=== PATIENT | female | born 1955 | race African-American/Black ===

== ENCOUNTER 2016-11-28 16:00 | Emergency (ER) | payer MEDICAID ==
[~2016-11-28] VITALS: Ht 165.1 cm; Wt 68.2 kg
[~2016-11-28 16:00] MED LIST: ACIDOPHILU4 OR; ALPRAZOLAM0.5 MG OR; ALPRAZOLAM1 MG OR; AMBIEN10 MG OR; AMBIEN10 MG PO; AMBIEN5 MG OR; AMBIEN5 MG PO; AMLODIPINE10 MG PO; APAP OR; ASPIRIN EC81 MG PO; ATENOLOL; ATENOLOL25 MG OR; ATENOLOL25 MG PO; ATIVAN0.5 MG OR; AUGMENTIN875TAB PO; BLEPH-1010 % OD; CIPROFLOXACN500 MG PO; CITALOPRAM20 MG PO; CLONAZEP ODT0.5 MG OR; CLONAZEPAM0.5 MG OR; CLONIDINE0.1 MG OR; COMBIVENT INH; DEPAKOTE125 MG OR; DEPAKOTE500 MG OR; DILANTIN INFATA50 MG OR; DILANTIN100 MG OR; DIVALPROEX250 M1 PO; DIVALPROEX250 MG PO; DUONEB INH; FAMOTIDINE20 M1 PO; FLEXERIL OR; FLEXERIL10 MG OR; FUROSEMIDE40 MG PO; HYDROCHLOROT12.5 MG OR; HYDROCHLOROT25 MG PO; HYDROCO OR; HYDROCO/APAP1 TA9 PO; HYDROMORPHONE HC2 MG PO; K-DUR/KLOR-CON20 MEQ PO; KEPPRA XR750 MG PO; KEPPRA100 MG/ML OR; KEPPRA1000 MG PO; KEPPRA500 MG OR; KEPPRA750 MG; LASIX 20 MG TAB20 MG PO; LASIX 40 MG TAB40 MG PO; LEVETIRACETAM1000 MG PO; LISINOPRIL10 MG PO; LISINOPRIL40 MG OR; LOPRESSOR50 MG PO; LORTAB 5 OR; LUNESTA1 MG OR; METOPROL TAR25 MG PO; METRONIDAZOL500 MG OR; NAPROSYN500 MG OR; NAPROSYN500 MG PO; NAPROXEN250 MG PO; NORVASC10 M1 PO; NORVASC10 MG OR; PAROXETINE20 MG PO; PAROXETINE40 MG PO; PAXIL20 MG OR; PAXIL40 MG OR; PAXIL40 MG PO; PERCOCET 10/31 COMBO PO; PERCOCET 5/325M1 TAB PO; PERCOCET1 TA2 PO; PHENYTOIN EX100 MG OR; POT CHLORIDE20 ME3 PO; POT CL MICRO20 MEQ PO; PRILOSEC20 MG/CAP OR; PROMETHAZI6.25 MG/5 OR; SMZ-TMP DS1 TAB PO; TRAMADOL HCL50 MG OR; TRAMADOL HCL50 MG PO; ULTRAM50 MG OR; WHEELCHAIR; XANAX0.25 MG OR; XANAX0.5 MG; XANAX0.5 MG PO; XANAX1 MG OR; ZITHROMAX500 MG PO
[2016-11-28] MEDS ORDERED: AMITRIPTYLIN25 MG PO (17:14)
[2016-11-28] MEDS ORDERED: NAPROSYN500 MG PO (17:56)
[2016-11-28 18:10] VITALS: BP 93/67
== END 2016-11-28 18:10 | disposition home or self-care (01) | DRG 563 ==
LOC: ED 16:00
DX: S83.92XA Sprain of unspecified site of left knee, initial encounter (principal); X58.XXXA Exposure to other specified factors, initial encounter; X50.1XXA Overexertion from prolonged static or awkward postures, initial encounter; Y92.003 Bedroom of unspecified non-institutional (private) residence as the place of occurrence of the external cause

== ENCOUNTER 2017-02-03 07:44 | Emergency (ER) | payer MEDICAID ==
[~2017-02-03] VITALS: Ht 165.1 cm; Wt 62.0 kg
[~2017-02-03 07:44] MED LIST changes: +AMITRIPTYLIN25 MG PO
[2017-02-03 08:59] LABS: HEMATOCRIT 33.7 % (37.0-47.0); IMMATURE GRANULOCYTES 0.2 % (0.0-1.0); MEAN CELL VOLUME 96.3 fL CALC (80.0-100.0); MEAN CORPUSCULAR HGB 31.4 pG CALC (26.0-32.0); MEAN CORPUSCULAR HGB CONC 32.6 g/L CALC (32.0-36.0); NEUT# 3.39 thou/uL (2.00-7.15); RED BLOOD COUNT 3.5 mill/uL (4.20-5.60); RED CELL DISTRI WIDTH 13.3 % (11.5-15.5)
[2017-02-03 09:18] LABS: ANION GAP 15 (6-22 (CALC)); BUN 17 mg/dL (7-17); BUN/CREATININE RATIO 25 (12-20 (CALC)); CALCIUM 9.4 mg/dL (8.4-10.2); CARBON DIOXIDE 32 mmol/l (22-30); CHLORIDE 106 mmol/l (95-108); CREATININE 0.7 mg/dL (0.5-1.0); GFR > 60 ML/MIN (>=60 (CALC)); GFR FOR AFR.AMER. > 60 ML/MIN (>=60 (CALC)); GLUCOSE 88 mg/dL (65-105); POTASSIUM 3.6 mmol/l (3.5-5.1); SODIUM 149 mmol/l (137-146)
[2017-02-03 09:48] VITALS: BP 130/83
== END 2017-02-03 09:53 | disposition home or self-care (01) | DRG 158 ==
LOC: ED 07:44
PROVIDERS: Family Medicine
DX: S01.511A Laceration without foreign body of lip, initial encounter (principal); E87.0 Hyperosmolality and hypernatremia; I10 Essential (primary) hypertension; G40.909 Epilepsy, unspecified, not intractable, without status epilepticus; F17.210 Nicotine dependence, cigarettes, uncomplicated; W19.XXXA Unspecified fall, initial encounter

== ENCOUNTER 2017-06-14 17:09 | Emergency (ER) | payer MEDICAID ==
[~2017-06-14] VITALS: Ht 170.2 cm; Wt 60.0 kg
[~2017-06-14 17:09] MED LIST changes: +VALPROIC ACD250 M1 PO
[2017-06-14 17:38] LABS: HEMATOCRIT 36.4 % (37.0-47.0); HEMOGLOBIN 11.9 g/dl (12.0-16.0); IMMATURE GRANULOCYTES 0.3 % (0.0-1.0); MEAN CELL VOLUME 97.1 fL CALC (80.0-100.0); MEAN CORPUSCULAR HGB 31.7 pG CALC (26.0-32.0); MEAN CORPUSCULAR HGB CONC 32.7 g/L CALC (32.0-36.0); NEUT# 2.39 thou/uL (2.00-7.15); RED BLOOD COUNT 3.75 mill/uL (4.20-5.60); RED CELL DISTRI WIDTH 13.7 % (11.5-15.5)
[2017-06-14 17:55] LABS: URINE BILIRUBIN - DIPSTICK NEGATIVE (NEGATIVE); URINE BLOOD DIPSTICK NEGATIVE (NEGATIVE); URINE COLOR YELLOW; URINE GLUCOSE - DIPSTICK NEGATIVE (NEGATIVE); URINE KETONE NEGATIVE (NEGATIVE); URINE LEUK ESTERASE NEGATIVE (Negative); URINE NITRITE - DIPSTICK NEGATIVE (Negative); URINE PROTEIN - DIPSTICK NEGATIVE (NEG-TRACE); URINE UROBILINOGEN - DIPSTICK 0.2 E.U./dL (0.2)
[2017-06-14 17:58] LABS: URINE CLARITY CLEAR
[2017-06-14 18:02] LABS: ALKALINE PHOSPHATASE 103 u/l (38-126); ANION GAP 12 (6-22 (CALC)); BILIRUBIN, TOTAL 0.3 mg/dL (0.0-1.4); BUN 10 mg/dL (7-17); BUN/CREATININE RATIO 15 (12-20 (CALC)); CARBON DIOXIDE 31 mmol/l (22-30); CHLORIDE 98 mmol/l (95-108); CREATININE 0.6 mg/dL (0.5-1.0); GFR > 60 ML/MIN (>=60 (CALC)); GFR FOR AFR.AMER. > 60 ML/MIN (>=60 (CALC)); POTASSIUM 3.7 mmol/l (3.5-5.1); SGOT/AST 39 u/l (14-36); SGPT/ALT 33 u/l (9-52); SODIUM 138 mmol/l (137-146); TOTAL PROTEIN 7.6 g/dL (6.3-8.2)
[2017-06-14 22:11] VITALS: BP 114/74
== END 2017-06-14 22:12 | disposition short-term general hospital (02) | DRG 101 ==
LOC: ED 17:09 → ED-I 20:35 → ED 22:12
PROVIDERS: Emergency Medicine
DX: G40.909 Epilepsy, unspecified, not intractable, without status epilepticus (principal); M54.2 Cervicalgia; W22.8XXA Striking against or struck by other objects, initial encounter; W18.39XA Other fall on same level, initial encounter; Y92.009 Unspecified place in unspecified non-institutional (private) residence as the place of occurrence of the external cause
CPT/HCPCS: J2060

== ENCOUNTER 2018-01-30 10:46 | Emergency (ER) | payer MEDICAID ==
[~2018-01-30] VITALS: Ht 170.2 cm; Wt 63.0 kg
[2018-01-30 11:36] LABS: HEMATOCRIT 37.3 % (37.0-47.0); HEMOGLOBIN 12.5 g/dl (12.0-16.0); MEAN CELL VOLUME 97.6 fL CALC (80.0-100.0); MEAN CORPUSCULAR HGB 32.7 pG CALC (26.0-32.0); MEAN CORPUSCULAR HGB CONC 33.5 g/L CALC (32.0-36.0); NEUT# 2.57 thou/uL (2.00-7.15); RED BLOOD COUNT 3.82 mill/uL (4.20-5.60); RED CELL DISTRI WIDTH 14.6 % (11.5-15.5)
[2018-01-30 11:42] LABS: ANION GAP 10 (6-22 (CALC)); BUN 12 mg/dL (8-23); BUN/CREATININE RATIO 19 (12-20 (CALC)); CARBON DIOXIDE 34 mmol/l (22-30); CHLORIDE 104 mmol/l (95-108); CREATININE 0.6 mg/dL (0.5-1.0); GFR > 60 ML/MIN (>=60 (CALC)); GFR FOR AFR.AMER. > 60 ML/MIN (>=60 (CALC)); POTASSIUM 3.7 mmol/l (3.5-5.1); SODIUM 145 mmol/l (137-146)
[2018-01-30 12:01] VITALS: BP 101/70
== END 2018-01-30 12:13 | disposition home or self-care (01) ==
LOC: ED 10:46
PROVIDERS: Family Medicine
DX: G40.909 Epilepsy, unspecified, not intractable, without status epilepticus (principal); I11.0 Hypertensive heart disease with heart failure; I50.9 Heart failure, unspecified; F41.9 Anxiety disorder, unspecified; J45.909 Unspecified asthma, uncomplicated; F17.210 Nicotine dependence, cigarettes, uncomplicated

== ENCOUNTER 2018-02-07 13:16 | Emergency (ER) | payer MEDICAID ==
[~2018-02-07] VITALS: Ht 170.2 cm; Wt 67.7 kg
[2018-02-07] MEDS ORDERED: FUROSEMIDE40 MG PO (13:35)
[2018-02-07 14:28] LABS: HEMATOCRIT 34.7 % (37.0-47.0); HEMOGLOBIN 11.5 g/dl (12.0-16.0); IMMATURE GRANULOCYTES 0.3 % (0.0-5.0); MEAN CELL VOLUME 96.7 fL CALC (80.0-100.0); MEAN CORPUSCULAR HGB CONC 33.1 g/L CALC (32.0-36.0); NEUT# 6.38 thou/uL (2.00-7.15); RED BLOOD COUNT 3.59 mill/uL (4.20-5.60); RED CELL DISTRI WIDTH 14.1 % (11.5-15.5)
[2018-02-07 14:48] LABS: ANION GAP 11 (6-22 (CALC)); BUN 11 mg/dL (8-23); BUN/CREATININE RATIO 22 (12-20 (CALC)); CARBON DIOXIDE 32 mmol/l (22-30); CHLORIDE 102 mmol/l (95-108); CREATININE 0.5 mg/dL (0.5-1.0); GFR > 60 ML/MIN (>=60 (CALC)); GFR FOR AFR.AMER. > 60 ML/MIN (>=60 (CALC)); POTASSIUM 3.2 mmol/l (3.5-5.1); SODIUM 141 mmol/l (137-146)
[2018-02-07] MEDS ORDERED: K-TAB20 MEQ PO (15:16)
[2018-02-07 16:16] VITALS: BP 149/84
== END 2018-02-07 16:35 | disposition home or self-care (01) ==
LOC: ED 13:16
PROVIDERS: Family Medicine
DX: G40.409 Other generalized epilepsy and epileptic syndromes, not intractable, without status epilepticus (principal); I11.0 Hypertensive heart disease with heart failure; I50.9 Heart failure, unspecified; J45.909 Unspecified asthma, uncomplicated; F17.210 Nicotine dependence, cigarettes, uncomplicated; F41.9 Anxiety disorder, unspecified
CPT/HCPCS: J2060

== ENCOUNTER 2018-02-07 17:56 | Observation (INO) | payer MEDICAID ==
[~2018-02-07] VITALS: Ht 170.2 cm; Wt 61.9 kg
[~2018-02-07 17:56] MED LIST changes: +K-TAB20 MEQ PO
--- NOTE | 2018-02-07 18:00 | NUR ---
PT ARRIVED WITH DAUGHTER VIA WC, HAD APPROX 20 SECOND WITNESSED EPISODE OF SUDDEN ONSET WEAKNESS WITH LEANING TO RT SIDE, PT RESPONSIVE AND ALERT BUT UNABLE TO VERBALIZE. PT BECAME VERBAL AND IS NOT POSTYCTAL.
[2018-02-07 18:43] LABS: INFLUENZA A NONE DETECTED (NONE DETECT); INFLUENZA B NONE DETECTED (NONE DETECT)
[2018-02-07 18:58] LABS: HEMATOCRIT 33.7 % (37.0-47.0); HEMOGLOBIN 11.2 g/dl (12.0-16.0); IMMATURE GRANULOCYTES 0.1 % (0.0-5.0); MEAN CELL VOLUME 96.6 fL CALC (80.0-100.0); MEAN CORPUSCULAR HGB 32.1 pG CALC (26.0-32.0); MEAN CORPUSCULAR HGB CONC 33.2 g/L CALC (32.0-36.0); NEUT# 5.05 thou/uL (2.00-7.15); RED BLOOD COUNT 3.49 mill/uL (4.20-5.60); RED CELL DISTRI WIDTH 13.9 % (11.5-15.5)
--- NOTE | 2018-02-07 19:15 | NUR ---
PT RETURNED TO ER AFTER BEING SEEN EARLIER TODAY, HAD SEIZURE AT HOME. EDP PERFORMED LUMBAR PUNCTURE, PT TOLERATED WELL. DAUGHTER IS AT BEDSIDE.
[2018-02-07 19:41] LABS: ALBUMIN 3.6 g/dL (3.2-5.0); ALKALINE PHOSPHATASE 73 u/l (38-126); ANION GAP 9 (6-22 (CALC)); BILIRUBIN, TOTAL 0.4 mg/dL (0.0-1.4); BUN 8 mg/dL (8-23); BUN/CREATININE RATIO 17 (12-20 (CALC)); CARBON DIOXIDE 31 mmol/l (22-30); CHLORIDE 105 mmol/l (95-108); CREATININE 0.5 mg/dL (0.5-1.0); GFR > 60 ML/MIN (>=60 (CALC)); GFR FOR AFR.AMER. > 60 ML/MIN (>=60 (CALC)); POTASSIUM 3.5 mmol/l (3.5-5.1); SGOT/AST 24 u/l (9-36); SODIUM 142 mmol/l (137-146)
[2018-02-07 19:43] LABS: URINE BILIRUBIN - DIPSTICK NEGATIVE (NEGATIVE); URINE BLOOD DIPSTICK NEGATIVE (NEGATIVE); URINE COLOR YELLOW; URINE GLUCOSE - DIPSTICK NEGATIVE (NEGATIVE); URINE KETONE TRACE mg/dL (NEGATIVE); URINE LEUK ESTERASE NEGATIVE (NEGATIVE); URINE NITRITE - DIPSTICK NEGATIVE (Negative); URINE PROTEIN - DIPSTICK NEGATIVE (NEG-TRACE)
[2018-02-07 19:52] LABS: URINE CLARITY CLEAR
--- NOTE | 2018-02-07 20:24 | NUR ---
PT ABLE TO USE BEDPAN WHILE IN STRETCHER. PT HAS HAD SPASMS OF THE FEET, INVOLUNTARY MOVEMENTS, WHICH SHE CALLS SEIZURES. NO TRUE SEIZURE ACTIVITY NOTED WHILE HERE.
--- NOTE | 2018-02-07 21:10 | NUR ---
SBAR PRINTED TO FLOOR
[2018-02-07 22:00] VITALS: BP 153/85
--- NOTE | 2018-02-07 22:00 | NUR ---
PT ARRIVED TO ROOM VIA STRETCHER WITH ER STAFF; ALERT AND ORIENTED. WAS ABLE TO STAND AND TAKE A FEW STEPS TO BED. PT INITIALLY C/O BEING COLD; TEMPERATURE DOWN TO 98.0. SHE ALSO C/O 8/10 LOWER LEG PAIN AND HAS FACIAL GRIMACING WHEN THEY ARE TOUCHED. RESPIRATIONS EVEN AND UNLABORED ON ROOM AIR. ASSESSMENT COMLETED UPON ADMISSION; RIGHT CHEST PORT IS ACCESSED; DRESSING CDI AND DATED 02/07/18; PT STATES THAT HER PORT IS R/T POOR VENOUS ACCESS AND SHE HAS HER BLOOD WORK DRAWN THROUGH IT. BEFORE ASSESSMENT IS COMPLETE PT STATES, "SEE, LOOK IT'S HAPPENING AGAIN" INDICATING HER FEET. BILATERAL FEET BEGIN TO FALL TO THE RIGHT. PERRLA; NO FACIAL DROOP; RIGHT CUSHION BUILDER SLIGHTLY WEAKER THAN LEFT. PT IMMEDIATELY REQUESTING HER HS MEDICATIONS INCLUDING XANAX AND AMBIEN. DAUGHTER NOW AT BEDSIDE. ORIENTED TO ROOM AND CALL LIGHT SYSTEM. PLAN OF CARE DISCUSSED. PT ENCOURAGED TO VERBALIZE CONCERNS. STATES UNDERSTANDING. SAFETY MEASURES IN PLACE. CALL LIGHT WITHIN REACH.
--- NOTE | 2018-02-07 22:00 | NUR ---
PT TAKEN TO ROOM 291 WITHOUT INCIDENT, REPORT WAS TO HÉCTOR.
--- NOTE | 2018-02-08 00:16 | NUR ---
HS MEDICATIONS ADMINISTERED AND IV FLUIDS INITATED; INFUSING WITHOUT DIFFICULTY. PT PLACED ON SEIZURE PRECAUTIONS. DAUGHTER REMAINS AT BEDSIDE. PT HAS MANY REQUESTS, USING CALL LIGHT FREQUENTLY. ALL NEEDS MET. BANDAID NOTED TO LUMBER SPINE R/T LUMBAR PUNCTURE PERFORMED TODAY IN ED. VS STABLE; AFEBRILE. PT ON FALL PRECAUTIONS; STAND BY ASSIST TO BSC. SAFETY MEASURES IN PLACE. CALL LIGHT WITHIN REACH.
[2018-02-08 01:00] VITALS: BP 112/67
[2018-02-08 04:00] VITALS: BP 136/80
--- NOTE | 2018-02-08 04:02 | NUR ---
PT ASLEEP AT THIS TIME WITH NO SIGNS OF DISTRESS. RESPIRATIONS EVEN AND UNLABORED ON ROOM AIR. NO ACUTE CHANGES IN CONDITION SINCE ADMISSION. SAFETY MEASURES IN PLACE. CALL LIGHT WITHIN REACH.
--- NOTE | 2018-02-08 05:14 | NUR ---
PT USES CALL LIGHT AND REPORTS, "I JUST HAD ANOTHER SEIZURE, BUT IT IS STARTING TO GO AWAY NOW." NO SIGNS OF SEIZURE ACTIVITY AND PT'S RIGHT HAND IS SLOWLY MOVING BACK AND FORTH. NEURO CHECK WNL WITH STRONG EQUAL CUSTOMER TRAINING SPECIALIST AND PEDAL PUSHES. REPORTS NO OTHER SYMPTOMS. NO EVIDENCE OF ANY POSTICAL SYMPTOMS. PT HAS REMAINED SINUS RHYTHM ON TELEMETRY WITH NO CHANGES DURING THIS TIME FRAME. WILL CONTINUE TO MONITOR.
--- NOTE | 2018-02-08 05:45 | NUR ---
PT USED CALL LIGHT TO REPORT ANOTHER EPISODE. RIGHT ARM WAS CONTRACTED AND RIGHT HAND LIMP; PT STATES THAT THIS IS INVOLUNTARY. IT QUICKLY RESOLVED AND PT AGAIN WITH STRONG EQUAL SUGAR CHIPPER MACHINE OPERATOR. SHE STATES THAT AT THIS TIME HER RIGHT LEG ALSO WAS CRAMPING AND TURNING TO THE RIGHT. SHE REQUESTED THAT 3RD RIGHT SIDE RAIL BE PUT UP BECAUSE SHE IS NERVOUS THAT WILL FALL OFF OF THE RIGHT SIDE OF THE BED.
--- NOTE | 2018-02-08 07:10 | NUR ---
PT C/O BLOOD ON HER R EAR. FROM FALL AT HOME YESTERDAY
--- NOTE | 2018-02-08 08:00 | NUR ---
ASSESSMENT IS COMPLETED: PT IS AWAKE AND ALERT, BREATH SOUNDS ARE CLEAR, BILATERALLY, NO C/O SOB, HR IS REG, PULSES ARE STRONG X4, ABD IS SOFT WITH ACTIVE BS. IV SITE IS FREE FROM REDNESS OR EDEMA. TELE MONITOR IN PLACE.
--- NOTE | 2018-02-08 09:15 | NUR ---
PT CALLED FOR THE NURSE. HAD "AN EPISODE". RE: R ARM WAS TWITCHING AND STRAIGHT UP IN THE AIR, ALSO BOTH LEGS FELT LIKE THEY WERE FLOATING, FELT LIKE HER HEAD WAS MOVING FROM SIDE TO SIDE ON THE INSIDE BUT NOT ON THE OUTSIDE". INSTRUCTED PT TO TRY AND RELAX. INFORMED MARTINEZ COOPER
--- NOTE | 2018-02-08 11:25 | NUR ---
NOTIFIED BY ER PT HR IN 40'S, ENTERED ROOM PT RESTING IN BED, NO SIGNS OF DISTRESS NOTED, RESP EVEN AND UNLABORED. SEIZURE PRECAUTIONS NOTED. ALERT AND ORIENTED X3. DISCUSSED POC, PT VOICES NO NEEDS OR COMPLAINTS AT THIS TIME. ASSESSMENT COMPLETED. NOTED SWELLING AND BRUISING TO R EAR.PT STATES SHE HAD RINGING IN HER EAR, GLOBAL MARKETING OPERATIONS MANAGER AND MD NOTIFIED. NEURO CHECK COMPLETED. PT HAS BRUISING FROM FALL AT HOME. DAUGHTER AT BEDSIDE. VOICES NO NEEDS OR COMPLAINTS AT THIS TIME. CALL LIGHT IN REACH,CONTINUE TO MONITOR.
[2018-02-08 11:45] VITALS: BP 110/81
--- NOTE | 2018-02-08 14:45 | NUR ---
PT MEDICATED WITH 1MG OF IV ATIVAN, PT REQUESTING SOMETHING FOR ANXIETY. WILL HOLD XANAX FOR 1HR AND MEDICATE AT 1600. PT IN AGREEMENT.
[2018-02-08 16:00] VITALS: BP 118/68
[2018-02-08 20:00] VITALS: BP 149/93
--- NOTE | 2018-02-08 20:22 | NUR ---
ASSESSMENT IS COMPLETED: IV SITE IS FREE FROM REDNESS OR EDEMA. HR IS REG, PULSES ARE STRONG X4,A BD IS SOFT WITH ACTIVE BS BREATH SOUNDS ARE CLEAR AND SOME WHEEZING NOTED. TELE MONTIOR IN PLACE. CONTINUE TO OSBERVE AND MONITOR.
[2018-02-09 00:26] VITALS: BP 142/87
--- NOTE | 2018-02-09 00:50 | NUR ---
PT IS RESTING WITH EYES CLOSED NODISTRESS NOTED. IV SITE IS FREE FROM REDNESS OR EDEMA. CONTINUE TO OBSERVE AND MONITOR.
--- NOTE | 2018-02-09 04:50 | NUR ---
PT IS RELAXING IN BED WITH NO DISTRESS NOTED. IV SITE IS FREE FROM REDNESS OR EDEMA.
[2018-02-09 05:33] VITALS: BP 130/76
[2018-02-09 09:19] VITALS: BP 137/78
--- NOTE | 2018-02-09 09:22 | NUR ---
PT RESTING IN BED DAUGHTER AT BEDSIDE, PT ALERT AND ORIENTED X3, NO SIGNS OF DISTRESS NOTED, RESP EVEN AND UNLABORED. IVF INFUSING TO PORT RU CHEST. DISCUSSED POC, VSS, PNEUMONIA VACC ADMINISTERED TO R ARM, TOLERATED WELL. ASSESSMENT COMPLETED. CALL LIGHT IN REACH,CONTINUE TO MONITOR.
--- NOTE | 2018-02-09 10:55 | NUR ---
ALLISON AND MD AT BEDSIDE, DISCUSSING POC AND PLANS FOR DISCHARGE, PT IN AGREEMENT.
[2018-02-09] MEDS ORDERED: SEROQUEL25 MG PO (11:29)
[2018-02-09] MEDS ORDERED: MEDDOSEPAK PO (11:29)
[2018-02-09] MEDS ORDERED: LEVETIRACETAM1000 MG PO (11:29)
[2018-02-09] MEDS ORDERED: AMITRIPTYLIN25 MG PO (11:29)
[2018-02-09] MEDS ORDERED: ZITHROMAX500 MG PO (11:29)
[2018-02-09] MEDS ORDERED: VALPROIC ACD250 M1 PO (11:29)
--- NOTE | 2018-02-09 11:59 | NUR ---
PT SITTING AT SIDE OF BED, LUNCH PROVIDED, INITATED AZYTHROMYCIN, WILL COMPLETE DISCHARGE ORDERS.
[2018-02-09 12:00] VITALS: BP 151/75
--- NOTE | 2018-02-09 13:27 | NUR ---
Discharge instructions given. Patient verbalizes understanding of same. Discharged in stable condition via Wheelchair to Home with family. All belongings sent with pt.
== END 2018-02-09 13:30 | disposition home or self-care (01) ==
LOC: ED 17:56 → ED-I 21:00 → ED 21:24 → MS2 21:25
PROVIDERS: Family Medicine; ADMIT Internal Medicine; ATTEND Internal Medicine
DX: G40.909 Epilepsy, unspecified, not intractable, without status epilepticus (principal); J44.1 Chronic obstructive pulmonary disease with (acute) exacerbation; I11.0 Hypertensive heart disease with heart failure; I50.9 Heart failure, unspecified; F41.9 Anxiety disorder, unspecified; F10.20 Alcohol dependence, uncomplicated; S30.0XXA Contusion of lower back and pelvis, initial encounter; S00.431A Contusion of right ear, initial encounter; S80.12XA Contusion of left lower leg, initial encounter; F17.210 Nicotine dependence, cigarettes, uncomplicated; W19.XXXA Unspecified fall, initial encounter; Z23 Encounter for immunization; J45.909 Unspecified asthma, uncomplicated
CPT/HCPCS: G0378; J1650; J2060

== ENCOUNTER 2018-08-14 10:16 | Inpatient (IN) | payer MEDICAID ==
[2018-08-14] VITALS (10 sets, daily range): BP systolic 107–150; BP diastolic 71–89
[~2018-08-14] VITALS: Ht 170.2 cm; Wt 64.6 kg
[~2018-08-14 10:16] MED LIST changes: +MEDDOSEPAK PO; +SEROQUEL25 MG PO
--- NOTE | 2018-08-14 10:32 | NUR ---
WHEELCHAIR TO ER ROOM 13, TO BED
--- NOTE | 2018-08-14 10:40 | NUR ---
PT STATES THAT SHE HAD A SEIZURE EARLIER TODAY AND HURT HER NECK AND BODY FROM FALLING. PT HAS A HX OF SEIZURES AND NO CHANGES IN MEDICATIONS. PT IS CURRENTLY AOX4. HARD C-COLLAR APPLIED PER MD. PT DENIES ANY C/P, SOB, N/V OR WEAKNESS.
--- NOTE | 2018-08-14 10:50 | NUR ---
PT HAVING FOCAL SEIZURE ACTIVITY DURING EXAM WITH MD. SEIZURE PADS IN PLACE.
--- NOTE | 2018-08-14 10:50 | NUR ---
PT RESTING ON STRETCHER, NO SIGNS OF SEIZURE ACTIVITY AT THIS TIME.
[2018-08-14 11:47] LABS: HEMATOCRIT 34.5 % (37.0-47.0); HEMOGLOBIN 11.1 g/dl (12.0-16.0); IMMATURE GRANULOCYTES 0.3 % (0.0-5.0); MEAN CELL VOLUME 98.6 fL CALC (80.0-100.0); MEAN CORPUSCULAR HGB 31.7 pG CALC (26.0-32.0); MEAN CORPUSCULAR HGB CONC 32.2 g/L CALC (32.0-36.0); NEUT# 2.23 thou/uL (2.00-7.15); RED BLOOD COUNT 3.5 mill/uL (4.20-5.60)
--- NOTE | 2018-08-14 11:50 | NUR ---
PT IN CT
--- NOTE | 2018-08-14 11:59 | NUR ---
PT RESTING ON STRETCHER, NO SEIZURES STATES DURING CT.
[2018-08-14 12:07] LABS: ANION GAP 11 (6-22 (CALC)); BUN 18 mg/dL (8-23); BUN/CREATININE RATIO 40 (12-20 (CALC)); CARBON DIOXIDE 30 mmol/l (22-30); CHLORIDE 103 mmol/l (95-108); CREATININE 0.5 mg/dL (0.5-1.0); GFR > 60 ML/MIN (>=60 (CALC)); GFR FOR AFR.AMER. > 60 ML/MIN (>=60 (CALC)); POTASSIUM 3.2 mmol/l (3.5-5.1); SODIUM 141 mmol/l (137-146)
[2018-08-14] MEDS ORDERED: AMLODIPINE5 MG PO (12:31)
[2018-08-14] MEDS ORDERED: DIVALPROEX250 MG PO (12:32)
[2018-08-14] MEDS ORDERED: QUETIAPINE FUMA25 MG PO (12:34)
[2018-08-14] MEDS ORDERED: CELEBREX100 M1 PO (12:34)
--- NOTE | 2018-08-14 12:59 | NUR ---
PT AMBULATED TO BEDSIDE COMMODE AND BACK TO BED WITH DAUGHTERS ASSISTANCE.
--- NOTE | 2018-08-14 13:21 | NUR ---
MD AT BEDSIDE TO EXPLAIN FINDINGS AND DISCUSS ADMISSION.
--- NOTE | 2018-08-14 14:19 | NUR ---
REPORT CALLED TO ICU ANDREWS HERNANDEZ AND SHEKHAR HERNANDEZ ACCPETED PT.
--- NOTE | 2018-08-14 14:34 | NUR ---
PATIENT ARRIVED FROM ER VIA ER STRETCHER WITH ACCOMPANYING NURSE. PATIENT ON ROOM AIR. ABLE TO WALK TO HER BED WITH ASSISTANCE. SHE WAS FOLLOWING COMMANDS AND ANSWERING QUESTIONS. FEW MINUTES LATER NURSING STAFF AND I OBSERVED SHE WAS HAVING A FOCAL SEIZURE, EYES STARING TO THE SIDE. SHE THAN BECAME CONFUSED AND WAS TRYING TO GET OUT OF BED, PULLING HER BLODD PRESSURE CUFF OF AND TELEMETRY OFF. SHE WAS KICKING AND STRIKING OUT. SHE WAS UNCOOPERATIVE AND WOULD NOT FOLLOW COMMANDS. COUPLE MINUTES LATER SHE WAS HAVING ANOTHER FOCAL SEIZURE AND WOULD THAN KICK AND STRIKE OUT AND TRY TO GET OUT OF BED. DAUGHTER TENZIN WAS CALLED TO NOTIFY AND ASKED IF SHE COULD COME IN TO BE WITH PATIENT, SHE REPORTED SHE COULD NOT COME IN AT THE TIME AND THAT SHE WAS ALRAEDY TIRED FROM WATCHING THE PATIENT AT THE ER BECAUSE SHE WAS DOING THE SAME THING WITH HER. DAUGHTER WAS NOTIFIED PATIENT WILL BE PLACED IN RESTRAINTS FOR HER SAFETY, DAUGHTER AGREED. DR THAKKAR IN ROOM TO ASSESS PATIENT. DR THAKKAR GAVE ORDERS TO PLACE ATIVAN DRIP WELL RESTRAINTS AND TRANSFER PATIENT TO [facility]. PATIENT PLACED IN RESTRAINTS SAFELY. SEZURES PRECAUTIONS IN PLACE. PATIENT AFEBRILE. PATIENT NOT ABLE TO ANSWER QUESTIONS SHE IS CONFUSED. FALL RISK PRECAUTIONS IN PLACE.
--- NOTE | 2018-08-14 14:35 | NUR ---
Admission Note Report Given to: SHEKHAR HERNANDEZ Transported by: Wheelchair X Stretcher Transported with: X Nurse Transporter X Patent IV O2 X Program Control Analyst TRANSPORTED TO ICU 3 WITHOUT INCIDENT
--- NOTE | 2018-08-14 15:50 | NUR ---
CALLED AND SPOKE TO RANDAL-FLUX TUBE ATTENDANT AT [facility] TO INITIATE TRANSFER, SBAR GIVEN AND RANDAL NOTIFIED SHE WILL CALL BACK SOON BED AVAILABLE.
--- NOTE | 2018-08-14 16:00 | NUR ---
resting in bed with eyes closed; resp even and unlabored; no resp distress/ apnea noted; ativan gtt cont at 1mg/hr; pt easily arousable; will continue to monitor
--- NOTE | 2018-08-14 16:23 | NUR ---
DR NUNEZ CRITICAL CARE DOCTOR CALLED AND SBAR GIVEN OF PATIENT, STILL AWAITING BED TO BE AVAILABLE.
--- NOTE | 2018-08-14 16:40 | NUR ---
RECEIVED A CALL FROM DR THAKKAR REGARDING HE SPOKE TO THE INTENSICE CARE DOCTOR AND SHE WANTS THE ATIVAN DRIP DISCONTINUED FOR CONCERNS OF RESPIRATORY SUPRESSION WHEN IN TRANSIT. DR THAKKAR GAVE ORDER TO DISCONTINE THE ATIVAN DRIP BEFORE PATIENT LEAVES.
--- NOTE | 2018-08-14 17:30 | NUR ---
pt placed on bed cunningham; lg urinary incont noted; assist to chair with staff at bedside for pt safety; complete linen change; dinner offered several times with pt refusal; justin to bed with restraints intact for pt safety; po fluids/ grape juice provoided; will continue to monitor
--- NOTE | 2018-08-14 17:49 | NUR ---
pt awake and alert; able to follow all commands; pt able to answer questions approp; pt able to states cuurent month, year and whereabout; plan of care including transfer to [place] explained; pt consent; transfer also explained to Mona Pinzon and co sign obtained; will continue to monitor
--- NOTE | 2018-08-14 17:53 | NUR ---
RANDAL FROM [facility] CALLED WITH BED ASSIGNMENT ICU BED 248, SEPTEMBER SET UP TRASNPORT NUMBER TO CALL REPORT [phone]
--- NOTE | 2018-08-14 18:12 | NUR ---
[facility] transport Abdirashid called per auto service writer; information provided; truck currently returning from [facility]; ETA 2.5 hrs to 2.45 hrs; will continue to monitor
--- NOTE | 2018-08-14 18:35 | NUR ---
SON MICK, ULISES AND, DAUGHTER TENZIN AT BEDSIDE RIGHT NOW WITH PATIENT. SHE IS ABLE TO TOLERATE HER DINNER MEAL. ON ROOM AIR. NO ACUTE DISTRESS SHOWN. NO SEIZURES. CALL LIGHT WITHIN REACH.
--- NOTE | 2018-08-14 19:00 | NUR ---
REPORT FROM Joyce BERUMEN RN. ASSUMED PT. CARE.
--- NOTE | 2018-08-14 19:30 | NUR ---
[facility] PRESENT TO TRANSPORT PATIENT TO [facility].
--- NOTE | 2018-08-14 19:45 | NUR ---
REPORT CALLED TO MARY MORENO. AT [facility].
--- NOTE | 2018-08-14 20:29 | NUR ---
REPORT TO MARY MORENO. AT [facility].
== END 2018-08-14 19:40 | DRG 101 ==
LOC: ED 10:16 → ED-I 13:13 → ED 13:24 → ICU 13:25
PROVIDERS: Family Medicine; ADMIT Internal Medicine Nephrology; ATTEND Internal Medicine Nephrology
DX: G40.919 Epilepsy, unspecified, intractable, without status epilepticus (principal); I11.0 Hypertensive heart disease with heart failure; I50.9 Heart failure, unspecified; J45.909 Unspecified asthma, uncomplicated; F17.200 Nicotine dependence, unspecified, uncomplicated; F41.1 Generalized anxiety disorder; M19.90 Unspecified osteoarthritis, unspecified site
CPT/HCPCS: J1953; J2060

== ENCOUNTER 2019-04-01 14:20 | Emergency (ER) | payer OTHER ==
[~2019-04-01] VITALS: Ht 170.2 cm; Wt 80.0 kg
[~2019-04-01 14:20] MED LIST changes: -AMBIEN5 MG PO; +CELEBREX100 M1 PO; -POT CL MICRO20 MEQ PO
[2019-04-01 15:14] LABS: HEMATOCRIT 39.5 % (37.0-47.0); HEMOGLOBIN 12.8 g/dl (12.0-16.0); IMMATURE GRANULOCYTES 0.3 % (0.0-5.0); MEAN CELL VOLUME 97.8 fL CALC (80.0-100.0); MEAN CORPUSCULAR HGB 31.7 pG CALC (26.0-32.0); MEAN CORPUSCULAR HGB CONC 32.4 g/L CALC (32.0-36.0); NEUT# 5.06 thou/uL (2.00-7.15); RED BLOOD COUNT 4.04 mill/uL (4.20-5.60); RED CELL DISTRI WIDTH 14.3 % (11.5-15.5)
[2019-04-01 15:31] LABS: MAGNESIUM 1.9 mg/dL (1.6-2.3)
[2019-04-01 15:35] LABS: ALKALINE PHOSPHATASE 75 u/l (38-126); BILIRUBIN, TOTAL 0.5 mg/dL (0.0-1.4); BUN 12 mg/dL (8-23); BUN/CREATININE RATIO 17 (12-20 (CALC)); CARBON DIOXIDE 31 mmol/l (22-30); CHLORIDE 107 mmol/l (95-108); CREATININE 0.7 mg/dL (0.5-1.0); GFR > 60 ML/MIN (>=60 (CALC)); GFR FOR AFR.AMER. > 60 ML/MIN (>=60 (CALC)); SGOT/AST 25 u/l (9-36); SODIUM 143 mmol/l (137-146)
[2019-04-01 15:37] LABS: ALBUMIN 4.6 g/dL (3.2-5.0); ANION GAP 10 (6-22 (CALC)); POTASSIUM 4.9 mmol/l (3.5-5.1); TOTAL PROTEIN 8.6 g/dL (6.3-8.2)
[2019-04-01 17:33] VITALS: BP 129/67
[2019-04-02] MEDS ORDERED: AMBIEN5 MG PO (11:38)
[2019-04-02] MEDS ORDERED: XANAX0.5 MG PO (11:39)
[2019-04-02] MEDS ORDERED: LASIX 40 MG TAB40 MG PO (11:42)
[2019-04-02] MEDS ORDERED: AMLODIPINE BESY10 MG PO (11:43)
[2019-04-02] MEDS ORDERED: KLOR-CON M2020 MEQ PO (11:44)
[2019-04-02] MEDS ORDERED: DEPAKOTE250 MG PO (11:45)
[2019-04-02] MEDS ORDERED: QUETIAPINE FUMA25 MG PO (11:46)
[2019-04-02] MEDS ORDERED: TENORMIN25 M1 PO (11:47)
[2019-04-02] MEDS ORDERED: AMITRIPTYLIN25 MG PO (11:47)
[2019-04-02] MEDS ORDERED: ROWEEPRA1000 MG PO (11:48)
[2019-04-02] MEDS ORDERED: ATIVAN1 M1 PO (13:46)
== END 2019-04-01 17:34 | disposition home or self-care (01) ==
LOC: ED 14:20
DX: G40.909 Epilepsy, unspecified, not intractable, without status epilepticus (principal)

== ENCOUNTER 2019-04-02 03:12 | Observation (INO) | payer OTHER ==
[~2019-04-02] VITALS: Ht 167.6 cm; Wt 62.1 kg
--- NOTE | 2019-04-02 03:14 | NUR ---
BY WC TO ROOM
--- NOTE | 2019-04-02 04:00 | NUR ---
PORT ACCESSED AND LABS DRAWN. PT STATES SHE IS "TRYING TO HAVE A SEIZURE." THEN FOLLOWED BY A CONTRACTED SHAKING OF RIGHT HAND/ARM..LASTING ABOUT 5-10 SECONDS.
[2019-04-02 04:06] VITALS: BP 122/78
[2019-04-02 04:10] LABS: HEMATOCRIT 36.4 % (37.0-47.0); IMMATURE GRANULOCYTES 0.1 % (0.0-5.0); MEAN CELL VOLUME 97.8 fL CALC (80.0-100.0); MEAN CORPUSCULAR HGB 32.3 pG CALC (26.0-32.0); NEUT# 4.79 thou/uL (2.00-7.15); RED BLOOD COUNT 3.72 mill/uL (4.20-5.60); RED CELL DISTRI WIDTH 14.3 % (11.5-15.5)
[2019-04-02 04:22] LABS: ALBUMIN 4.1 g/dL (3.2-5.0); ALKALINE PHOSPHATASE 66 u/l (38-126); ANION GAP 11 (6-22 (CALC)); BILIRUBIN, TOTAL 0.7 mg/dL (0.0-1.4); BUN 12 mg/dL (8-23); BUN/CREATININE RATIO 22 (12-20 (CALC)); CARBON DIOXIDE 31 mmol/l (22-30); CHLORIDE 103 mmol/l (95-108); CREATININE 0.5 mg/dL (0.5-1.0); GFR > 60 ML/MIN (>=60 (CALC)); GFR FOR AFR.AMER. > 60 ML/MIN (>=60 (CALC)); SGOT/AST 22 u/l (9-36); SODIUM 141 mmol/l (137-146); TOTAL PROTEIN 7.8 g/dL (6.3-8.2)
[2019-04-02 04:24] LABS: POTASSIUM 3.7 mmol/l (3.5-5.1)
--- NOTE | 2019-04-02 04:33 | NUR ---
AT BEDSIDE TO DISCUSS ADMISSION.
--- NOTE | 2019-04-02 04:58 | NUR ---
REPORT TO DEON/MED-SURG
[2019-04-02 05:05] VITALS: BP 110/71
--- NOTE | 2019-04-02 05:07 | NUR ---
TO FLOOR VIA STRETCHER. POCKET MONITOR. PT REMAINS ALERT/ORIEINTED. FARIDA. LETTY. NO FURTHUR SEIZURE LIKE ACTIVITY. PT TRANSFERED SELF FROM STRETCHER TO BED.
--- NOTE | 2019-04-02 06:36 | NUR ---
PATIENT ADMITTED FROM ER VIA STRETCHER WITH ER STAFF IN ATTENDANCE. PATIENT TRANSFERRED FROM STRETCHER TO THE BED. PATIENT ADMITTED FOR SEIZURES. PATIENT IS AWAKE ALERT AND ORIENTEDX3. STATES THAT SHE WAS IN THE ER YESTERDAY AND THEN RETURNED TONIGHT FOR SEIZURE LIKE ACTIVITY AND WEAKNESS, PATIENT STATES THAT THE DOCTOR MADE RECENT CHANGES TO MEDS AFTER TAKING THEM FOR YEARS. WAS SWITCHED FROM XANAX TO ATIVAN PER PATIENT, LAST TOOK ONLY 1 ATIVAN YESTERDAY AFTERNOON AROUND 3PM. LIVES WITH DAUGHTER AND WAS BROUGHT TO THE ER TONIGHT BY HER DAUGHTER. PATIENT PORT TO RIGHT UPPER CEST-ACCESSED WITH GOOD BLOOD RETURN. IVF NS HUNG AND INFUSING AT 125CC/HR. SITE IS HEALTHY. PATIENT STATES THAT SHE HAD NORMAL BM YSTERDAY. VOIDING WITHOUT ANY DIFFICULTY. STATES THAT RECENTLY HER LEGS HAVE BECOME VERY WEAK WITH FREQUENT FALLS AT HOME. SEIZURE PRECAUTIONS IN PLAE WITH SIDERAILS PADDED. BED ALARM IN PLACE FOR PATIENT SAFETY. PATIENT MEDICATED PER DR. BABCOCK ORDER FOR RESTORIL 15MG. ORIENTED TO ROOM AND SURROUNDINGS. INSTRUCTED ON USE OF NURSE CALL LIGHT SYSTEM, TV REMOTE AND PHONE. SAFETY PRECAUTIONS REVIEWED WITH PATIENT. CALL LIGHT IN REACH. WILL CONT TO MONITOR.
[2019-04-02 08:30] VITALS: BP 119/70
--- NOTE | 2019-04-02 08:30 | NUR ---
ASSESSMENT IS COMPLETED: IV SITE IS FREE FROM REDNESS OR EDEMA. HR IS REG,PULSES ARE STRONG X4, ABD IS SOFT WITH ACTIVE BS. TELE MONITOR IN PLACE. SIDE RAILS ARE PADDED. CONTINUE TO OBSERVE AND MONITOR.
[2019-04-02 10:30] VITALS: BP 108/70
[2019-04-02] MEDS ORDERED: AMBIEN5 MG PO (11:38)
[2019-04-02] MEDS ORDERED: XANAX0.5 MG PO (11:39)
[2019-04-02] MEDS ORDERED: LASIX 40 MG TAB40 MG PO (11:42)
[2019-04-02] MEDS ORDERED: AMLODIPINE BESY10 MG PO (11:43)
[2019-04-02] MEDS ORDERED: KLOR-CON M2020 MEQ PO (11:44)
[2019-04-02] MEDS ORDERED: DEPAKOTE250 MG PO (11:45)
[2019-04-02] MEDS ORDERED: QUETIAPINE FUMA25 MG PO (11:46)
[2019-04-02] MEDS ORDERED: AMITRIPTYLIN25 MG PO (11:47)
[2019-04-02] MEDS ORDERED: TENORMIN25 M1 PO (11:47)
[2019-04-02] MEDS ORDERED: ROWEEPRA1000 MG PO (11:48)
--- NOTE | 2019-04-02 12:00 | NUR ---
PT IS RELAXING IN BED WITH NO DISTRESS NOTED. IV SITE IS FREE FROM REDNESS OR EDEMA. PT DID STATE" I HAD 1 EPISODE OF MY LEG SHAKING WOULD LIKE THE SIDE RAIL UP". EXPLAINED WE CAN HAVE 3 BUT NOT 4 VERBALIZED UNDERSTANDING.
[2019-04-02] MEDS ORDERED: ATIVAN1 M1 PO (13:46)
--- NOTE | 2019-04-02 15:00 | NUR ---
PT VOID IS 300UA ON BSC
--- NOTE | 2019-04-02 15:48 | NUR ---
IV SITE DISCONTINUED CATHETER INTACT REMOVED BY MISHA LAMAS RN. DISCHARGE INSTRUCTIONS GIVEN AND VERBALIZED UNDERSTANDING. FAMILY IN TO DENTAL FINANCIAL COORDINATOR PT. Discharge instructions given. Patient verbalizes understanding of same. Discharged in stable condition via Wheelchair to Home with family. All belongings sent with pt.
== END 2019-04-02 15:48 | disposition home or self-care (01) ==
LOC: ED 03:12 → ED-I 04:20 → ED 04:42 → MS2 04:43
PROVIDERS: Emergency Medicine; ADMIT Internal Medicine; ATTEND Internal Medicine
DX: G40.209 Localization-related (focal) (partial) symptomatic epilepsy and epileptic syndromes with complex partial seizures, not intractable, without status epilepticus (principal); F41.9 Anxiety disorder, unspecified; I11.0 Hypertensive heart disease with heart failure; I50.9 Heart failure, unspecified; J45.909 Unspecified asthma, uncomplicated; F17.200 Nicotine dependence, unspecified, uncomplicated
CPT/HCPCS: G0378

== ENCOUNTER 2019-04-17 09:32 | Emergency (ER) | payer OTHER ==
[~2019-04-17] VITALS: Ht 167.6 cm; Wt 67.0 kg
[~2019-04-17 09:32] MED LIST changes: +AMBIEN5 MG PO; +AMLODIPINE BESY10 MG PO; +ATIVAN1 M1 PO; +DEPAKOTE250 MG PO; +KLOR-CON M2020 MEQ PO; +QUETIAPINE FUMA25 MG PO; +ROWEEPRA1000 MG PO; +TENORMIN25 M1 PO
[2019-04-17 10:16] LABS: HEMATOCRIT 35.2 % (37.0-47.0); HEMOGLOBIN 11.5 g/dl (12.0-16.0); IMMATURE GRANULOCYTES 0.2 % (0.0-5.0); MEAN CELL VOLUME 97.2 fL CALC (80.0-100.0); MEAN CORPUSCULAR HGB 31.8 pG CALC (26.0-32.0); MEAN CORPUSCULAR HGB CONC 32.7 g/L CALC (32.0-36.0); NEUT# 3.54 thou/uL (2.00-7.15); RED BLOOD COUNT 3.62 mill/uL (4.20-5.60); RED CELL DISTRI WIDTH 13.8 % (11.5-15.5)
[2019-04-17 10:31] LABS: ALBUMIN 3.9 g/dL (3.2-5.0); ALKALINE PHOSPHATASE 90 u/l (38-126); ANION GAP 12 (6-22 (CALC)); BILIRUBIN, TOTAL 0.5 mg/dL (0.0-1.4); BUN 10 mg/dL (8-23); BUN/CREATININE RATIO 30 (12-20 (CALC)); CARBON DIOXIDE 27 mmol/l (22-30); CHLORIDE 99 mmol/l (95-108); CREATININE 0.3 mg/dL (0.5-1.0); ETHYL ALCOHOL 0 mg/dl (0-30); GFR > 60 ML/MIN (>=60 (CALC)); GFR FOR AFR.AMER. > 60 ML/MIN (>=60 (CALC)); POTASSIUM 3.4 mmol/l (3.5-5.1); SGOT/AST 21 u/l (9-36); SODIUM 135 mmol/l (137-146); TOTAL PROTEIN 7.4 g/dL (6.3-8.2)
[2019-04-17 11:18] LABS: URINE BILIRUBIN - DIPSTICK NEGATIVE (NEGATIVE); URINE BLOOD DIPSTICK NEGATIVE (NEGATIVE); URINE COLOR YELLOW; URINE GLUCOSE - DIPSTICK NEGATIVE (NEGATIVE); URINE KETONE NEGATIVE (NEGATIVE); URINE LEUK ESTERASE NEGATIVE (NEGATIVE); URINE NITRITE - DIPSTICK NEGATIVE (Negative); URINE PROTEIN - DIPSTICK NEGATIVE (NEG-TRACE); URINE SPECIFIC GRAVITY 1.015; URINE UROBILINOGEN - DIPSTICK 0.2 E.U./dL (0.2)
[2019-04-17] MEDS ORDERED: DEPAKOTE500 MG PO (12:35)
[2019-04-17 12:40] VITALS: BP 149/91
== END 2019-04-17 13:45 | disposition home or self-care (01) ==
LOC: ED 09:32
PROVIDERS: Family Medicine
DX: G40.909 Epilepsy, unspecified, not intractable, without status epilepticus (principal); I11.0 Hypertensive heart disease with heart failure; I50.9 Heart failure, unspecified; F17.210 Nicotine dependence, cigarettes, uncomplicated
CPT/HCPCS: J2060

== ENCOUNTER 2019-05-28 | Emergency (ER) | payer OTHER ==
[~2019-05-28] MED LIST changes: +DEPAKOTE500 MG PO
[2019-05-28] MEDS ORDERED: FUROSEMIDE80 M1 PO (08:38)
[2019-05-28] MEDS ORDERED: AMLODIPINE BESY10 MG PO (08:38)
[2019-05-28] MEDS ORDERED: LEVETIRACETAM1000 MG PO (08:39)
[2019-05-28] MEDS ORDERED: ATORVASTATIN CA40 MG PO (08:39)
[2019-05-28] MEDS ORDERED: QUETIAPINE FUMA25 MG PO (08:41)
[2019-05-28] MEDS ORDERED: ATENOLOL25 MG PO (08:52)
[2019-05-28 09:12] LABS: HEMATOCRIT 34.2 % (37.0-47.0); HEMOGLOBIN 11.3 g/dl (12.0-16.0); IMMATURE GRANULOCYTES 0.2 % (0.0-5.0); MEAN CELL VOLUME 97.2 fL CALC (80.0-100.0); MEAN CORPUSCULAR HGB 32.1 pG CALC (26.0-32.0); NEUT# 3.74 thou/uL (2.00-7.15); RED BLOOD COUNT 3.52 mill/uL (4.20-5.60); RED CELL DISTRI WIDTH 13.7 % (11.5-15.5)
[2019-05-28 09:41] LABS: ALBUMIN 3.8 g/dL (3.2-5.0); ALKALINE PHOSPHATASE 75 u/l (38-126); ANION GAP 10 (6-22 (CALC)); BILIRUBIN, TOTAL 0.7 mg/dL (0.0-1.4); BUN 7 mg/dL (8-23); BUN/CREATININE RATIO 23 (12-20 (CALC)); CARBON DIOXIDE 30 mmol/l (22-30); CHLORIDE 104 mmol/l (95-108); CREATININE 0.3 mg/dL (0.5-1.0); ETHYL ALCOHOL 0 mg/dl (0-30); GFR > 60 ML/MIN (>=60 (CALC)); GFR FOR AFR.AMER. > 60 ML/MIN (>=60 (CALC)); POTASSIUM 2.8 mmol/l (3.5-5.1); SGOT/AST 31 u/l (9-36); SODIUM 141 mmol/l (137-146); TOTAL PROTEIN 7.4 g/dL (6.3-8.2)
[2019-05-28 09:54] LABS: MYOGLOBIN 150 ng/mL (0 - 62)
[2019-05-28 10:50] LABS: URINE BILIRUBIN - DIPSTICK NEGATIVE (NEGATIVE); URINE BLOOD DIPSTICK NEGATIVE (NEGATIVE); URINE COLOR YELLOW; URINE GLUCOSE - DIPSTICK NEGATIVE (NEGATIVE); URINE KETONE NEGATIVE (NEGATIVE); URINE LEUK ESTERASE NEGATIVE (NEGATIVE); URINE NITRITE - DIPSTICK NEGATIVE (Negative); URINE PROTEIN - DIPSTICK NEGATIVE (NEG-TRACE); URINE UROBILINOGEN - DIPSTICK 0.2 E.U./dL (0.2)
[2019-05-28 11:01] LABS: BARBITURATES NEGATIVE (NEGATIVE); COCAINE NEGATIVE (NEGATIVE); METHADONE NEGATIVE (NEGATIVE); OXCYCODONE NEGATIVE (NEGATIVE); TETRAHYDROCANNABIONOL POSITIVE (NEGATIVE); TRICYLIC ANTIDEPRESSANTS NEGATIVE (NEGATIVE)
[2019-05-28] MEDS ORDERED: K-DUR/KLOR-CON20 MEQ PO (11:28)
[2019-05-28] MEDS ORDERED: VALPROIC ACD250 M1 PO (11:28)
== END 2019-05-28 12:08 | disposition home or self-care (01) ==
PROVIDERS: Family Medicine
DX: G40.909 Epilepsy, unspecified, not intractable, without status epilepticus (principal); E87.6 Hypokalemia; S00.01XA Abrasion of scalp, initial encounter; I11.0 Hypertensive heart disease with heart failure; I50.9 Heart failure, unspecified; F17.200 Nicotine dependence, unspecified, uncomplicated; W10.9XXA Fall (on) (from) unspecified stairs and steps, initial encounter; Y92.009 Unspecified place in unspecified non-institutional (private) residence as the place of occurrence of the external cause
CPT/HCPCS: J2060

== ENCOUNTER 2020-04-12 15:44 | Emergency (ER) | payer OTHER ==
[~2020-04-12] VITALS: Ht 167.6 cm; Wt 76.0 kg
[~2020-04-12 15:44] MED LIST changes: +ATORVASTATIN CA40 MG PO; +FUROSEMIDE80 M1 PO
[2020-04-12] MEDS ORDERED: IBUPROFEN600 MG PO (16:50)
[2020-04-12 17:03] VITALS: BP 132/61
[2020-04-12] MEDS ORDERED: WALKER/ADULT/FOLDING XX (17:03)
== END 2020-04-12 17:16 | disposition home or self-care (01) ==
LOC: ED 15:44
DX: S92.321A Displaced fracture of second metatarsal bone, right foot, initial encounter for closed fracture (principal); S92.331A Displaced fracture of third metatarsal bone, right foot, initial encounter for closed fracture; S92.341A Displaced fracture of fourth metatarsal bone, right foot, initial encounter for closed fracture; I11.0 Hypertensive heart disease with heart failure; I50.9 Heart failure, unspecified; G40.909 Epilepsy, unspecified, not intractable, without status epilepticus; F41.9 Anxiety disorder, unspecified; J45.909 Unspecified asthma, uncomplicated; F17.200 Nicotine dependence, unspecified, uncomplicated; X58.XXXA Exposure to other specified factors, initial encounter; Z88.5 Allergy status to narcotic agent

== ENCOUNTER 2021-04-04 14:09 | Emergency (ER) | payer OTHER ==
[~2021-04-04] VITALS: Ht 170.2 cm; Wt 68.9 kg
[~2021-04-04 14:09] MED LIST changes: +IBUPROFEN600 MG PO; +WALKER/ADULT/FOLDING XX
[2021-04-04 15:44] LABS: IMMATURE GRANULOCYTES 0.1 % (0.0-5.0); MEAN CELL VOLUME 101.4 fL CALC (80.0-100.0); MEAN CORPUSCULAR HGB 32.9 pG CALC (26.0-32.0); MEAN CORPUSCULAR HGB CONC 32.4 g/dL CAL (32.0-36.0); NEUT# 5.97 thou/uL (2.00-7.15); RED BLOOD COUNT 3.65 mill/uL (4.20-5.60); RED CELL DISTRI WIDTH 12.8 % (11.5-15.5)
[2021-04-04 15:58] LABS: ALBUMIN 3.9 g/dL (3.2-5.0); ALKALINE PHOSPHATASE 75 u/l (38-126); BILIRUBIN, TOTAL 0.8 mg/dL (0.0-1.4); BUN 6 mg/dL (8-23); BUN/CREATININE RATIO 10 (12-20 (CALC)); CARBON DIOXIDE 25 mmol/l (22-30); CHLORIDE 104 mmol/l (95-108); CREATININE 0.6 mg/dL (0.5-1.0); GFR > 60 ML/MIN (>=60 (CALC)); GFR FOR AFR.AMER. > 60 ML/MIN (>=60 (CALC)); SGOT/AST 47 u/l (9-36); SODIUM 139 mmol/l (137-146); TOTAL PROTEIN 7.2 g/dL (6.3-8.2)
[2021-04-04 16:00] LABS: ANION GAP 14 (6-22 (CALC)); POTASSIUM 3.5 mmol/l (3.5-5.1)
[2021-04-04 18:03] VITALS: BP 130/77
== END 2021-04-04 18:04 | disposition home or self-care (01) ==
LOC: ED 14:09
PROVIDERS: Family Medicine
DX: G40.909 Epilepsy, unspecified, not intractable, without status epilepticus (principal); I11.0 Hypertensive heart disease with heart failure; I50.9 Heart failure, unspecified; J45.909 Unspecified asthma, uncomplicated; F17.210 Nicotine dependence, cigarettes, uncomplicated

== ENCOUNTER 2021-06-11 10:38 | Emergency (ER) | payer OTHER ==
[~2021-06-11] VITALS: Ht 170.2 cm; Wt 65.9 kg
[2021-06-11 12:29] LABS: ALKALINE PHOSPHATASE 78 u/l (38-126); BUN 8 mg/dL (8-23); BUN/CREATININE RATIO 20 (12-20 (CALC)); CARBON DIOXIDE 26 mmol/l (22-30); CHLORIDE 110 mmol/l (95-108); CREATININE 0.4 mg/dL (0.5-1.0); ETHYL ALCOHOL 0 mg/dl (0-30); GFR > 60 ML/MIN (>=60 (CALC)); GFR FOR AFR.AMER. > 60 ML/MIN (>=60 (CALC)); LIPASE 32 u/l (23-300); SGOT/AST 21 u/l (9-36); SODIUM 142 mmol/l (137-146)
[2021-06-11 12:30] LABS: IMMATURE GRANULOCYTES 0.2 % (0.0-5.0); MEAN CELL VOLUME 99.3 fL CALC (80.0-100.0); MEAN CORPUSCULAR HGB 32.6 pG CALC (26.0-32.0); MEAN CORPUSCULAR HGB CONC 32.9 g/dL CAL (32.0-36.0); NEUT# 3.45 thou/uL (2.00-7.15); RED BLOOD COUNT 2.79 mill/uL (4.20-5.60)
[2021-06-11 12:33] LABS: ANION GAP 9 (6-22 (CALC)); BILIRUBIN, TOTAL 0.3 mg/dL (0.0-1.4); HEMATOCRIT 27.7 % (37.0-47.0); HEMOGLOBIN 9.1 g/dl (12.0-16.0); POTASSIUM 2.7 mmol/l (3.5-5.1)
[2021-06-11 13:46] LABS: URINE BILIRUBIN - DIPSTICK NEGATIVE (NEGATIVE); URINE BLOOD DIPSTICK NEGATIVE (NEGATIVE); URINE COLOR YELLOW; URINE GLUCOSE - DIPSTICK NEGATIVE (NEGATIVE); URINE KETONE NEGATIVE (NEGATIVE); URINE LEUK ESTERASE NEGATIVE (NEGATIVE); URINE PROTEIN - DIPSTICK NEGATIVE (NEG-TRACE); URINE SPECIFIC GRAVITY 1.015
[2021-06-11 13:50] LABS: URINE NITRITE - DIPSTICK NEGATIVE (Negative)
[2021-06-11 14:58] VITALS: BP 179/86
== END 2021-06-11 14:59 | disposition home or self-care (01) ==
LOC: ED 10:38
DX: G40.409 Other generalized epilepsy and epileptic syndromes, not intractable, without status epilepticus (principal); E87.6 Hypokalemia; I11.0 Hypertensive heart disease with heart failure; I50.9 Heart failure, unspecified; J45.909 Unspecified asthma, uncomplicated; F41.9 Anxiety disorder, unspecified; F17.210 Nicotine dependence, cigarettes, uncomplicated

== ENCOUNTER 2021-07-09 10:28 | Emergency (ER) | payer OTHER ==
[~2021-07-09] VITALS: Ht 170.2 cm; Wt 79.5 kg
[2021-07-09 10:31] VITALS: BP 173/104
[2021-07-09 11:20] LABS: HEMATOCRIT 33.4 % (37.0-47.0); HEMOGLOBIN 10.4 g/dl (12.0-16.0); IMMATURE GRANULOCYTES 0.5 % (0.0-5.0); MEAN CORPUSCULAR HGB 32.4 pG CALC (26.0-32.0); MEAN CORPUSCULAR HGB CONC 31.1 g/dL CAL (32.0-36.0); NEUT# 3.04 thou/uL (2.00-7.15); RED BLOOD COUNT 3.21 mill/uL (4.20-5.60); RED CELL DISTRI WIDTH 14.4 % (11.5-15.5)
[2021-07-09 11:22] LABS: URINE BILIRUBIN - DIPSTICK NEGATIVE (NEGATIVE); URINE BLOOD DIPSTICK NEGATIVE (NEGATIVE); URINE COLOR YELLOW; URINE GLUCOSE - DIPSTICK NEGATIVE (NEGATIVE); URINE KETONE NEGATIVE (NEGATIVE); URINE LEUK ESTERASE NEGATIVE (NEGATIVE); URINE PH 6.5 (4.5-8.0); URINE PROTEIN - DIPSTICK NEGATIVE (NEG-TRACE); URINE SPECIFIC GRAVITY 1.015; URINE UROBILINOGEN - DIPSTICK 0.2 E.U./dL (0.2)
[2021-07-09 11:27] LABS: ALKALINE PHOSPHATASE 84 u/l (38-126); BILIRUBIN, TOTAL 0.4 mg/dL (0.0-1.4); BUN 13 mg/dL (8-23); BUN/CREATININE RATIO 21 (12-20 (CALC)); CARBON DIOXIDE 29 mmol/l (22-30); CHLORIDE 105 mmol/l (95-108); CREATININE 0.6 mg/dL (0.5-1.0); ETHYL ALCOHOL 0 mg/dl (0-30); GFR > 60 ML/MIN (>=60 (CALC)); GFR FOR AFR.AMER. > 60 ML/MIN (>=60 (CALC)); LIPASE 38 u/l (23-300); SGOT/AST 22 u/l (9-36); SODIUM 139 mmol/l (137-146); TOTAL PROTEIN 7.2 g/dL (6.3-8.2)
[2021-07-09 11:27] LABS: URINE NITRITE - DIPSTICK NEGATIVE (Negative)
[2021-07-09 11:28] LABS: ACT PARTIAL THROMBO TIME 27.4 SECONDS (20.0-32.5); INTERNATIONAL NORMALIZED RATIO 0.9 RATIO (0.7-1.3); PROTHROMBIN TIME 9.8 SECONDS (9.0-12.5)
[2021-07-09 11:29] LABS: ALBUMIN 3.9 g/dL (3.2-5.0); ANION GAP 9 (6-22 (CALC)); POTASSIUM 4.1 mmol/l (3.5-5.1)
[2021-07-09] MEDS ORDERED: ELAVIL25 M1 PO (12:29)
[2021-07-09] MEDS ORDERED: DIVALPROEX SOD250 M1 PO (12:29)
[2021-07-09] MEDS ORDERED: ALPRAZOLAM0.5 M2 PO (12:32)
[2021-07-09] MEDS ORDERED: SERTRALINE50 MG PO (12:32)
[2021-07-09] MEDS ORDERED: POTASSIUM CHLO20 MEQ PO (12:33)
[2021-07-09] MEDS ORDERED: BENZONATATE200 MG PO (12:33)
[2021-07-09 12:55] VITALS: BP 83/62
[2021-07-09 13:01] VITALS: BP 133/105
[2021-07-09 13:31] VITALS: BP 156/83
[2021-07-09 14:00] VITALS: BP 164/81
[2021-07-09 14:22] VITALS: BP 164/84
== END 2021-07-09 14:26 | disposition short-term general hospital (02) ==
LOC: ED 10:28 → ED-I 13:12 → ED 14:26
DX: G40.109 Localization-related (focal) (partial) symptomatic epilepsy and epileptic syndromes with simple partial seizures, not intractable, without status epilepticus (principal); I11.0 Hypertensive heart disease with heart failure; I50.9 Heart failure, unspecified; J45.909 Unspecified asthma, uncomplicated; F41.9 Anxiety disorder, unspecified; F17.200 Nicotine dependence, unspecified, uncomplicated; Z79.899 Other long term (current) drug therapy; Z78.1 Physical restraint status
CPT/HCPCS: J1953; J2060

== ENCOUNTER 2021-10-15 15:35 | Emergency (ER) | payer OTHER ==
[~2021-10-15] VITALS: Ht 170.2 cm; Wt 67.2 kg
[~2021-10-15 15:35] MED LIST changes: +ALPRAZOLAM0.5 M2 PO; +BENZONATATE200 MG PO; +DIVALPROEX SOD250 M1 PO; +ELAVIL25 M1 PO; +POTASSIUM CHLO20 MEQ PO; +SERTRALINE50 MG PO
[2021-10-15 15:45] VITALS: BP 124/87
[2021-10-15 16:15] VITALS: BP 139/87
[2021-10-15] MEDS ORDERED: QUETIAPINE FUMA25 MG PO (16:37)
[2021-10-15] MEDS ORDERED: ALPRAZOLAM ER0.5 MG PO (16:37)
[2021-10-15 16:44] VITALS: BP 139/87
== END 2021-10-15 16:57 | disposition home or self-care (01) ==
LOC: ED 15:35
DX: Z76.0 Encounter for issue of repeat prescription (principal); F41.9 Anxiety disorder, unspecified; R56.9 Unspecified convulsions

== ENCOUNTER 2021-10-31 07:05 | Emergency (ER) | payer OTHER ==
[2021-10-31] VITALS (8 sets, daily range): BP systolic 137–151; BP diastolic 80–95
[~2021-10-31] VITALS: Ht 170.2 cm; Wt 70.0 kg
[~2021-10-31 07:05] MED LIST changes: +ALPRAZOLAM ER0.5 MG PO
[2021-10-31 07:40] LABS: HEMATOCRIT 35.5 % (37.0-47.0); HEMOGLOBIN 11.5 g/dl (12.0-16.0); IMMATURE GRANULOCYTES 0.2 % (0.0-5.0); MEAN CELL VOLUME 98.9 fL CALC (80.0-100.0); MEAN CORPUSCULAR HGB CONC 32.4 g/dL CAL (32.0-36.0); NEUT# 4.03 thou/uL (2.00-7.15); RED BLOOD COUNT 3.59 mill/uL (4.20-5.60)
[2021-10-31 07:53] LABS: ALKALINE PHOSPHATASE 88 u/l (38-126); ANION GAP 9 (6-22 (CALC)); BILIRUBIN, TOTAL 0.4 mg/dL (0.0-1.4); BUN 10 mg/dL (8-23); BUN/CREATININE RATIO 19 (12-20 (CALC)); CARBON DIOXIDE 30 mmol/l (22-30); CHLORIDE 100 mmol/l (95-108); CREATININE 0.5 mg/dL (0.5-1.0); GFR FOR AFR.AMER. > 60 ML/MIN (>=60 (CALC)); GFR OTHER RACES > 60 ML/MIN (>=60 (CALC)); SGOT/AST 24 u/l (9-36); SODIUM 136 mmol/l (137-146); TOTAL PROTEIN 7.3 g/dL (6.3-8.2)
[2021-10-31 09:18] LABS: URINE BILIRUBIN - DIPSTICK NEGATIVE (NEGATIVE); URINE BLOOD DIPSTICK NEGATIVE (NEGATIVE); URINE COLOR YELLOW; URINE GLUCOSE - DIPSTICK NEGATIVE (NEGATIVE); URINE KETONE NEGATIVE (NEGATIVE); URINE LEUK ESTERASE NEGATIVE (NEGATIVE); URINE PROTEIN - DIPSTICK NEGATIVE (NEG-TRACE)
[2021-10-31 09:23] LABS: URINE NITRITE - DIPSTICK NEGATIVE (Negative)
[2021-10-31] MEDS ORDERED: K-TAB20 MEQ PO (10:05)
[2021-10-31] MEDS ORDERED: XANAX0.5 MG PO (10:05)
[2021-10-31] MEDS ORDERED: LEVETIRACETAM1000 MG PO (10:20)
[2021-10-31] MEDS ORDERED: DIVALPROEX SOD250 M1 PO (10:20)
== END 2021-10-31 10:51 | disposition home or self-care (01) ==
LOC: ED 07:05
PROVIDERS: Family Medicine
DX: G40.909 Epilepsy, unspecified, not intractable, without status epilepticus (principal); E87.6 Hypokalemia; I10 Essential (primary) hypertension; I50.9 Heart failure, unspecified; F41.9 Anxiety disorder, unspecified; J45.909 Unspecified asthma, uncomplicated; F17.200 Nicotine dependence, unspecified, uncomplicated; Z20.822 Contact with and (suspected) exposure to COVID-19
CPT/HCPCS: J1953; J2060

== ENCOUNTER 2021-11-08 18:49 | Emergency (ER) | payer OTHER ==
[~2021-11-08] VITALS: Ht 170.2 cm; Wt 72.7 kg
[2021-11-08] VITALS (7 sets, daily range): BP systolic 108–134; BP diastolic 76–99
[2021-11-08 20:01] LABS: HEMATOCRIT 36.2 % (37.0-47.0); HEMOGLOBIN 11.9 g/dl (12.0-16.0); IMMATURE GRANULOCYTES 0.5 % (0.0-5.0); MEAN CELL VOLUME 97.8 fL CALC (80.0-100.0); MEAN CORPUSCULAR HGB 32.2 pG CALC (26.0-32.0); MEAN CORPUSCULAR HGB CONC 32.9 g/dL CAL (32.0-36.0); NEUT# 6.36 thou/uL (2.00-7.15); RED BLOOD COUNT 3.7 mill/uL (4.20-5.60); RED CELL DISTRI WIDTH 13.6 % (11.5-15.5)
[2021-11-08 20:10] LABS: ALBUMIN 4.2 g/dL (3.2-5.0); ALKALINE PHOSPHATASE 86 u/l (38-126); ANION GAP 11 (6-22 (CALC)); BILIRUBIN, TOTAL 0.4 mg/dL (0.0-1.4); BUN 7 mg/dL (8-23); BUN/CREATININE RATIO 12 (12-20 (CALC)); CARBON DIOXIDE 28 mmol/l (22-30); CHLORIDE 101 mmol/l (95-108); CREATININE 0.6 mg/dL (0.5-1.0); ETHYL ALCOHOL 0 mg/dl (0-30); GFR FOR AFR.AMER. > 60 ML/MIN (>=60 (CALC)); GFR OTHER RACES > 60 ML/MIN (>=60 (CALC)); LIPASE 34 u/l (23-300); POTASSIUM 2.9 mmol/l (3.5-5.1); SGOT/AST 20 u/l (9-36); SODIUM 137 mmol/l (137-146); TOTAL PROTEIN 7.5 g/dL (6.3-8.2)
[2021-11-08 20:13] LABS: MAGNESIUM 1.4 mg/dL (1.6-2.3)
[2021-11-08 20:40] LABS: TSH, 3RD GENERATION 1.49 uIU/mL (0.47 - 4.68)
[2021-11-09] MEDS ORDERED: XANAX0.5 MG PO (05:32)
[2021-11-09] MEDS ORDERED: AMBIEN5 MG PO (05:32)
== END 2021-11-09 00:44 | disposition home or self-care (01) ==
LOC: ED 18:49
PROVIDERS: Family Medicine
DX: G40.909 Epilepsy, unspecified, not intractable, without status epilepticus (principal); E87.6 Hypokalemia; I11.0 Hypertensive heart disease with heart failure; I50.9 Heart failure, unspecified; F41.9 Anxiety disorder, unspecified; J45.909 Unspecified asthma, uncomplicated; F17.200 Nicotine dependence, unspecified, uncomplicated; Z20.822 Contact with and (suspected) exposure to COVID-19
CPT/HCPCS: J1953; J2060

== ENCOUNTER 2021-11-09 03:57 | Emergency (ER) | payer OTHER ==
[~2021-11-09] VITALS: Ht 170.2 cm; Wt 72.7 kg
[2021-11-09 04:13] VITALS: BP 156/94
[2021-11-09 04:15] VITALS: BP 161/92
[2021-11-09 04:30] VITALS: BP 145/93
[2021-11-09 04:56] LABS: HEMATOCRIT 36.6 % (37.0-47.0); HEMOGLOBIN 11.9 g/dl (12.0-16.0); IMMATURE GRANULOCYTES 0.1 % (0.0-5.0); MEAN CELL VOLUME 97.9 fL CALC (80.0-100.0); MEAN CORPUSCULAR HGB 31.8 pG CALC (26.0-32.0); MEAN CORPUSCULAR HGB CONC 32.5 g/dL CAL (32.0-36.0); NEUT# 5.18 thou/uL (2.00-7.15); RED BLOOD COUNT 3.74 mill/uL (4.20-5.60); RED CELL DISTRI WIDTH 13.7 % (11.5-15.5)
[2021-11-09 05:09] LABS: ALBUMIN 4.4 g/dL (3.2-5.0); ALKALINE PHOSPHATASE 87 u/l (38-126); ANION GAP 9 (6-22 (CALC)); BILIRUBIN, TOTAL 0.8 mg/dL (0.0-1.4); BUN 4 mg/dL (8-23); BUN/CREATININE RATIO 8 (12-20 (CALC)); CARBON DIOXIDE 32 mmol/l (22-30); CHLORIDE 99 mmol/l (95-108); CPK 190 u/l (30-165); CREATININE 0.5 mg/dL (0.5-1.0); GFR FOR AFR.AMER. > 60 ML/MIN (>=60 (CALC)); GFR OTHER RACES > 60 ML/MIN (>=60 (CALC)); POTASSIUM 3.4 mmol/l (3.5-5.1); SGOT/AST 23 u/l (9-36); SODIUM 137 mmol/l (137-146); TOTAL PROTEIN 7.8 g/dL (6.3-8.2)
[2021-11-09 05:16] LABS: MYOGLOBIN 98 ng/mL (0 - 62)
[2021-11-09] MEDS ORDERED: XANAX0.5 MG PO (05:32)
[2021-11-09] MEDS ORDERED: AMBIEN5 MG PO (05:32)
[2021-11-09 06:11] VITALS: BP 145/93
== END 2021-11-09 06:17 | disposition home or self-care (01) ==
LOC: ED 03:57
PROVIDERS: Emergency Medicine
DX: G40.909 Epilepsy, unspecified, not intractable, without status epilepticus (principal); I11.0 Hypertensive heart disease with heart failure; I50.9 Heart failure, unspecified; F41.9 Anxiety disorder, unspecified; J45.909 Unspecified asthma, uncomplicated; F17.200 Nicotine dependence, unspecified, uncomplicated; T42.6X6A Underdosing of other antiepileptic and sedative-hypnotic drugs, initial encounter; T42.4X6A Underdosing of benzodiazepines, initial encounter; Z91.128 Patient's intentional underdosing of medication regimen for other reason

== ENCOUNTER 2021-11-21 18:11 | Emergency (ER) | payer OTHER | END 2021-11-21 18:47 | disposition left against medical advice (07) | DRG 951 | LOC: ED 18:11 → LWOBS 18:47 | PROVIDERS: Family Medicine | DX: Z53.21 Procedure and treatment not carried out due to patient leaving prior to being seen by health care provider (principal) ==

== ENCOUNTER 2021-12-26 20:45 | Emergency (ER) | payer MEDICARE, OTHER ==
[~2021-12-26] VITALS: Ht 170.2 cm; Wt 70.0 kg
[2021-12-26 21:44] LABS: HEMATOCRIT 33.9 % (37.0-47.0); HEMOGLOBIN 11.1 g/dl (12.0-16.0); IMMATURE GRANULOCYTES 0.2 % (0.0-5.0); MEAN CELL VOLUME 98.3 fL CALC (80.0-100.0); MEAN CORPUSCULAR HGB 32.2 pG CALC (26.0-32.0); MEAN CORPUSCULAR HGB CONC 32.7 g/dL CAL (32.0-36.0); NEUT# 3.93 thou/uL (2.00-7.15); RED BLOOD COUNT 3.45 mill/uL (4.20-5.60); RED CELL DISTRI WIDTH 13.5 % (11.5-15.5)
[2021-12-26 21:55] LABS: ALBUMIN 4.3 g/dL (3.2-5.0); ALKALINE PHOSPHATASE 93 u/l (38-126); BILIRUBIN, TOTAL 0.7 mg/dL (0.0-1.4); BUN 15 mg/dL (8-23); BUN/CREATININE RATIO 17 (12-20 (CALC)); CHLORIDE 103 mmol/l (95-108); CREATININE 0.9 mg/dL (0.5-1.0); GFR FOR AFR.AMER. > 60 ML/MIN (>=60 (CALC)); GFR OTHER RACES > 60 ML/MIN (>=60 (CALC)); POTASSIUM 3.5 mmol/l (3.5-5.1); SGOT/AST 21 u/l (9-36); SODIUM 137 mmol/l (137-146); TOTAL PROTEIN 7.7 g/dL (6.3-8.2)
[2021-12-26 21:56] LABS: ANION GAP 13 (6-22 (CALC)); CARBON DIOXIDE 25 mmol/l (22-30)
[2021-12-26 22:07] LABS: MYOGLOBIN 65 ng/mL (0 - 62)
[2021-12-27 01:24] LABS: URINE BILIRUBIN - DIPSTICK NEGATIVE (NEGATIVE); URINE COLOR YELLOW; URINE GLUCOSE - DIPSTICK NEGATIVE (NEGATIVE)
[2021-12-27 01:25] LABS: URINE BLOOD DIPSTICK NEGATIVE (NEGATIVE); URINE KETONE NEGATIVE (NEGATIVE); URINE LEUK ESTERASE NEGATIVE (NEGATIVE); URINE NITRITE - DIPSTICK NEGATIVE (Negative); URINE PROTEIN - DIPSTICK NEGATIVE (NEG-TRACE); URINE UROBILINOGEN - DIPSTICK 0.2 E.U./dL (0.2)
[2021-12-27 01:42] VITALS: BP 101/62
== END 2021-12-27 01:58 | disposition home or self-care (01) ==
LOC: ED 20:45
PROVIDERS: Family Medicine
DX: G40.909 Epilepsy, unspecified, not intractable, without status epilepticus (principal); I11.0 Hypertensive heart disease with heart failure; I50.9 Heart failure, unspecified; J45.909 Unspecified asthma, uncomplicated; F41.9 Anxiety disorder, unspecified; F17.200 Nicotine dependence, unspecified, uncomplicated; Z20.822 Contact with and (suspected) exposure to COVID-19
CPT/HCPCS: J1953

== ENCOUNTER 2022-02-14 06:57 | Emergency (ER) | payer MEDICARE, OTHER ==
[2022-02-14] VITALS (11 sets, daily range): BP systolic 116–170; BP diastolic 72–93
[~2022-02-14] VITALS: Ht 170.2 cm; Wt 77.3 kg
[2022-02-14] MEDS ORDERED: DEPAKOTE500 MG PO (07:15)
[2022-02-14 07:24] LABS: MEAN CORPUSCULAR HGB 31.8 pG CALC (26.0-32.0); MEAN CORPUSCULAR HGB CONC 33.2 g/dL CAL (32.0-36.0); NEUT# 3.38 thou/uL (2.00-7.15); RED BLOOD COUNT 4.21 mill/uL (4.20-5.60); RED CELL DISTRI WIDTH 12.9 % (11.5-15.5)
[2022-02-14 07:34] LABS: HEMATOCRIT 40.4 % (37.0-47.0); HEMOGLOBIN 13.4 g/dl (12.0-16.0)
[2022-02-14 07:37] LABS: ALBUMIN 4.7 g/dL (3.2-5.0); ALKALINE PHOSPHATASE 107 u/l (38-126); BUN 10 mg/dL (8-23); BUN/CREATININE RATIO 17 (12-20 (CALC)); CHLORIDE 100 mmol/l (95-108); CREATININE 0.6 mg/dL (0.5-1.0); GFR FOR AFR.AMER. > 60 ML/MIN (>=60 (CALC)); GFR OTHER RACES > 60 ML/MIN (>=60 (CALC)); POTASSIUM 3.2 mmol/l (3.5-5.1); SGOT/AST 29 u/l (9-36); SODIUM 141 mmol/l (137-146)
[2022-02-14 07:38] LABS: ANION GAP 11 (6-22 (CALC)); BILIRUBIN, TOTAL 0.3 mg/dL (0.0-1.4); CARBON DIOXIDE 33 mmol/l (22-30)
[2022-02-14 10:13] LABS: URINE BILIRUBIN - DIPSTICK NEGATIVE (NEGATIVE); URINE BLOOD DIPSTICK NEGATIVE (NEGATIVE); URINE COLOR YELLOW; URINE GLUCOSE - DIPSTICK NEGATIVE (NEGATIVE); URINE KETONE NEGATIVE (NEGATIVE); URINE LEUK ESTERASE NEGATIVE (NEGATIVE); URINE NITRITE - DIPSTICK NEGATIVE (Negative); URINE PROTEIN - DIPSTICK NEGATIVE (NEG-TRACE); URINE SPECIFIC GRAVITY 1.015; URINE UROBILINOGEN - DIPSTICK 0.2 E.U./dL (0.2)
== END 2022-02-14 12:41 | disposition home or self-care (01) ==
LOC: ED 06:57
PROVIDERS: Emergency Medicine
DX: G40.909 Epilepsy, unspecified, not intractable, without status epilepticus (principal); R79.89 Other specified abnormal findings of blood chemistry; F41.9 Anxiety disorder, unspecified; J45.909 Unspecified asthma, uncomplicated; I11.0 Hypertensive heart disease with heart failure; I50.9 Heart failure, unspecified; F17.200 Nicotine dependence, unspecified, uncomplicated
CPT/HCPCS: J2060

== ENCOUNTER 2022-02-16 11:55 | Emergency (ER) | payer MEDICARE, OTHER ==
[2022-02-16] VITALS (8 sets, daily range): BP systolic 126–145; BP diastolic 82–87
[~2022-02-16] VITALS: Ht 170.2 cm; Wt 68.0 kg
[2022-02-16 12:56] LABS: HEMATOCRIT 38.8 % (37.0-47.0); HEMOGLOBIN 12.8 g/dl (12.0-16.0); MEAN CELL VOLUME 96.3 fL CALC (80.0-100.0); MEAN CORPUSCULAR HGB 31.8 pG CALC (26.0-32.0); NEUT# 3.69 thou/uL (2.00-7.15); RED BLOOD COUNT 4.03 mill/uL (4.20-5.60)
[2022-02-16 13:10] LABS: ALBUMIN 4.4 g/dL (3.2-5.0); ALKALINE PHOSPHATASE 84 u/l (38-126); ANION GAP 12 (6-22 (CALC)); BILIRUBIN, TOTAL 0.5 mg/dL (0.0-1.4); BUN 7 mg/dL (8-23); BUN/CREATININE RATIO 13 (12-20 (CALC)); CARBON DIOXIDE 29 mmol/l (22-30); CHLORIDE 101 mmol/l (95-108); CREATININE 0.6 mg/dL (0.5-1.0); GFR FOR AFR.AMER. > 60 ML/MIN (>=60 (CALC)); GFR OTHER RACES > 60 ML/MIN (>=60 (CALC)); POTASSIUM 3.5 mmol/l (3.5-5.1); SGOT/AST 30 u/l (9-36); SODIUM 138 mmol/l (137-146); TOTAL PROTEIN 7.8 g/dL (6.3-8.2)
[2022-02-16] MEDS ORDERED: VALPROIC ACD250 M3 PO (15:54)
== END 2022-02-16 16:59 | disposition home or self-care (01) ==
LOC: ED 11:55
PROVIDERS: Emergency Medicine
DX: G40.909 Epilepsy, unspecified, not intractable, without status epilepticus (principal); S20.212A Contusion of left front wall of thorax, initial encounter; R79.89 Other specified abnormal findings of blood chemistry; I11.0 Hypertensive heart disease with heart failure; I50.9 Heart failure, unspecified; F41.9 Anxiety disorder, unspecified; J45.909 Unspecified asthma, uncomplicated; F17.200 Nicotine dependence, unspecified, uncomplicated; W18.39XA Other fall on same level, initial encounter
CPT/HCPCS: J1953

== ENCOUNTER 2022-04-06 13:37 | Emergency (ER) | payer MEDICARE, MEDICAID ==
[~2022-04-06] VITALS: Ht 170.2 cm; Wt 67.8 kg
[~2022-04-06 13:37] MED LIST changes: +VALPROIC ACD250 M3 PO
[2022-04-06 15:25] LABS: HEMATOCRIT 38.7 % (37.0-47.0); IMMATURE GRANULOCYTES 0.2 % (0.0-5.0); MEAN CELL VOLUME 95.3 fL CALC (80.0-100.0); MEAN CORPUSCULAR HGB CONC 33.6 g/dL CAL (32.0-36.0); NEUT# 3.14 thou/uL (2.00-7.15); RED BLOOD COUNT 4.06 mill/uL (4.20-5.60); RED CELL DISTRI WIDTH 14.2 % (11.5-15.5)
[2022-04-06 15:33] LABS: URINE BILIRUBIN - DIPSTICK NEGATIVE (NEGATIVE); URINE BLOOD DIPSTICK NEGATIVE (NEGATIVE); URINE COLOR YELLOW; URINE GLUCOSE - DIPSTICK NEGATIVE (NEGATIVE); URINE KETONE NEGATIVE (NEGATIVE); URINE LEUK ESTERASE NEGATIVE (NEGATIVE); URINE PROTEIN - DIPSTICK NEGATIVE (NEG-TRACE); URINE SPECIFIC GRAVITY 1.015; URINE UROBILINOGEN - DIPSTICK 0.2 E.U./dL (0.2)
[2022-04-06 15:36] LABS: ALBUMIN 4.6 g/dL (3.2-5.0); ALKALINE PHOSPHATASE 89 u/l (38-126); ANION GAP 13 (6-22 (CALC)); BILIRUBIN, TOTAL 0.4 mg/dL (0.0-1.4); BUN 5 mg/dL (8-23); BUN/CREATININE RATIO 9 (12-20 (CALC)); CARBON DIOXIDE 33 mmol/l (22-30); CHLORIDE 104 mmol/l (95-108); CREATININE 0.6 mg/dL (0.5-1.0); GFR FOR AFR.AMER. > 60 ML/MIN (>=60 (CALC)); GFR OTHER RACES > 60 ML/MIN (>=60 (CALC)); LIPASE 42 u/l (23-300); MAGNESIUM 1.6 mg/dL (1.6-2.3); POTASSIUM 3.5 mmol/l (3.5-5.1); SGOT/AST 31 u/l (9-36); SODIUM 146 mmol/l (137-146); TOTAL PROTEIN 7.8 g/dL (6.3-8.2)
[2022-04-06 15:42] LABS: URINE NITRITE - DIPSTICK NEGATIVE (Negative)
[2022-04-06 15:47] LABS: CPK 132 u/l (30-165)
[2022-04-06 18:12] VITALS: BP 129/82
== END 2022-04-06 18:20 | disposition home or self-care (01) ==
LOC: ED 13:37
PROVIDERS: Internal Medicine
DX: R42 Dizziness and giddiness (principal); I11.0 Hypertensive heart disease with heart failure; I50.9 Heart failure, unspecified; J45.909 Unspecified asthma, uncomplicated; F41.9 Anxiety disorder, unspecified; G40.909 Epilepsy, unspecified, not intractable, without status epilepticus; F17.210 Nicotine dependence, cigarettes, uncomplicated

== ENCOUNTER 2022-04-27 06:28 | Emergency (ER) | payer MEDICARE, MEDICAID ==
[~2022-04-27] VITALS: Ht 170.2 cm; Wt 70.0 kg
[2022-04-27] MEDS ORDERED: LEVETIRACETAM1000 MG PO (07:46)
[2022-04-27 07:48] LABS: BASO% 0.4 % (0-3); EOS% 2.6 % (0-8); IMMATURE GRANULOCYTES 0.4 % (0.0-5.0); LYMPH% 20.6 % (15-41); MEAN CELL VOLUME 97.3 fL CALC (80.0-100.0); MEAN CORPUSCULAR HGB 32.4 pG CALC (26.0-32.0); MEAN CORPUSCULAR HGB CONC 33.3 g/dL CAL (32.0-36.0); MONO% 10.5 % (2-13); NEUT# 3.25 thou/uL (2.00-7.15); NEUT% 65.5 % (42-76); RED BLOOD COUNT 3.3 mill/uL (4.20-5.60); RED CELL DISTRI WIDTH 14.6 % (11.5-15.5)
[2022-04-27 07:58] LABS: HEMATOCRIT 32.1 % (37.0-47.0); HEMOGLOBIN 10.7 g/dl (12.0-16.0)
[2022-04-27 08:10] LABS: ALKALINE PHOSPHATASE 83 u/l (38-126); ANION GAP 8 (6-22 (CALC)); BILIRUBIN, TOTAL 0.4 mg/dL (0.0-1.4); CARBON DIOXIDE 31 mmol/l (22-30); CHLORIDE 108 mmol/l (95-108); MAGNESIUM 1.7 mg/dL (1.6-2.3); SGOT/AST 24 u/l (9-36); SODIUM 144 mmol/l (137-146); TOTAL PROTEIN 6.3 g/dL (6.3-8.2)
[2022-04-27 08:22] LABS: BUN 15 mg/dL (8-23); BUN/CREATININE RATIO 30 (12-20 (CALC)); CREATININE 0.5 mg/dL (0.5-1.0); GFR FOR AFR.AMER. > 60 ML/MIN (>=60 (CALC)); GFR OTHER RACES > 60 ML/MIN (>=60 (CALC))
[2022-04-27 08:23] LABS: ALBUMIN 3.6 g/dL (3.2-5.0)
[2022-04-27 09:05] VITALS: BP 132/76
== END 2022-04-27 09:05 | disposition home or self-care (01) ==
LOC: ED 06:28
PROVIDERS: Emergency Medicine
DX: G40.409 Other generalized epilepsy and epileptic syndromes, not intractable, without status epilepticus (principal); I11.0 Hypertensive heart disease with heart failure; I50.9 Heart failure, unspecified; F41.9 Anxiety disorder, unspecified; F17.200 Nicotine dependence, unspecified, uncomplicated; E87.6 Hypokalemia; Z79.899 Other long term (current) drug therapy
CPT/HCPCS: J1953

== ENCOUNTER 2022-08-07 11:22 | Emergency (ER) | payer MEDICARE, MEDICAID ==
[~2022-08-07] VITALS: Ht 170.2 cm; Wt 72.5 kg
[~2022-08-07 11:22] MED LIST changes: +ADULT ASPIRIN R81 MG PO; +ELEPSIA XR1000 MG PO; +POTASSIUM CHLO20 ME2 PO; +PROAIR HFA IN; +SYMBICORT1 AE1 IN; +VITAMIN B COMPL1 TAB PO; +ZOLPIDEM5 M1 PO
[2022-08-07 12:14] LABS: BASO% 0.4 % (0-3); EOS% 0.6 % (0-8); HEMATOCRIT 38.9 % (37.0-47.0); HEMOGLOBIN 12.5 g/dl (12.0-16.0); IMMATURE GRANULOCYTES 0.2 % (0.0-5.0); MEAN CELL VOLUME 96.3 fL CALC (80.0-100.0); MEAN CORPUSCULAR HGB 30.9 pG CALC (26.0-32.0); MEAN CORPUSCULAR HGB CONC 32.1 g/dL CAL (32.0-36.0); MONO% 9.1 % (2-13); NEUT# 3.09 thou/uL (2.00-7.15); NEUT% 59.7 % (42-76); RED BLOOD COUNT 4.04 mill/uL (4.20-5.60); RED CELL DISTRI WIDTH 13.2 % (11.5-15.5)
[2022-08-07 12:30] LABS: ALBUMIN 4.2 g/dL (3.2-5.0); ALKALINE PHOSPHATASE 126 u/l (38-126); ANION GAP 11 (6-22 (CALC)); BILIRUBIN, TOTAL 0.4 mg/dL (0.02-1.3); BUN 17 mg/dL (8-23); BUN/CREATININE RATIO 23 (12-20 (CALC)); CARBON DIOXIDE 29 mmol/l (22-30); CHLORIDE 103 mmol/l (95-108); CREATININE 0.7 mg/dL (0.5-1.0); GFR FOR AFR.AMER. > 60 ML/MIN (>=60 (CALC)); GFR OTHER RACES > 60 ML/MIN (>=60 (CALC)); POTASSIUM 2.9 mmol/l (3.5-5.1); SGOT/AST 21 u/l (9-36); SODIUM 139 mmol/l (137-146); TOTAL PROTEIN 7.5 g/dL (6.3-8.2)
[2022-08-07 13:12] LABS: URINE BILIRUBIN - DIPSTICK NEGATIVE (NEGATIVE); URINE BLOOD DIPSTICK SMALL (NEGATIVE); URINE COLOR YELLOW; URINE GLUCOSE - DIPSTICK NEGATIVE (NEGATIVE); URINE KETONE NEGATIVE (NEGATIVE); URINE LEUK ESTERASE NEGATIVE (NEGATIVE); URINE NITRITE - DIPSTICK NEGATIVE (Negative); URINE PH 6.5 (4.5-8.0); URINE PROTEIN - DIPSTICK NEGATIVE (NEG-TRACE); URINE UROBILINOGEN - DIPSTICK 0.2 E.U./dL (0.2)
[2022-08-07 13:20] LABS: URINE RBC 0-2 RBC/hpf (0-5)
[2022-08-07 13:21] LABS: URINE SQUAMOUS EPITHELIAL CELL RARE EPI/hpf (0-FEW)
[2022-08-07 14:16] VITALS: BP 136/82
[2022-08-07 14:30] VITALS: BP 136/78
[2022-08-07] MEDS ORDERED: KLOR-CON M1010 MEQ PO (16:13)
[2022-08-07 16:59] VITALS: BP 136/78
== END 2022-08-07 17:15 | disposition home or self-care (01) ==
LOC: ED 11:22
PROVIDERS: Nurse Practitioner
DX: G40.409 Other generalized epilepsy and epileptic syndromes, not intractable, without status epilepticus (principal); E87.6 Hypokalemia; I11.0 Hypertensive heart disease with heart failure; I50.9 Heart failure, unspecified; J45.909 Unspecified asthma, uncomplicated; F41.9 Anxiety disorder, unspecified; F17.200 Nicotine dependence, unspecified, uncomplicated
CPT/HCPCS: J1953; J2060

== ENCOUNTER 2022-09-06 11:36 | Emergency (ER) | payer MEDICARE, MEDICAID ==
[~2022-09-06] VITALS: Ht 170.2 cm; Wt 70.4 kg
[2022-09-06] VITALS (11 sets, daily range): BP systolic 119–147; BP diastolic 67–91
[~2022-09-06 11:36] MED LIST changes: +KLOR-CON M1010 MEQ PO
[2022-09-06 12:46] LABS: BASO% 0.5 % (0-3); EOS% 1.6 % (0-8); HEMATOCRIT 36.1 % (37.0-47.0); HEMOGLOBIN 11.7 g/dl (12.0-16.0); IMMATURE GRANULOCYTES 0.2 % (0.0-5.0); LYMPH% 32.4 % (15-41); MEAN CELL VOLUME 96.8 fL CALC (80.0-100.0); MEAN CORPUSCULAR HGB 31.4 pG CALC (26.0-32.0); MEAN CORPUSCULAR HGB CONC 32.4 g/dL CAL (32.0-36.0); MONO% 11.8 % (2-13); NEUT# 2.37 thou/uL (2.00-7.15); NEUT% 53.5 % (42-76); RED BLOOD COUNT 3.73 mill/uL (4.20-5.60); RED CELL DISTRI WIDTH 14.6 % (11.5-15.5)
[2022-09-06 13:08] LABS: ALKALINE PHOSPHATASE 99 u/l (38-126); ANION GAP 9 (6-22 (CALC)); BUN 16 mg/dL (8-23); BUN/CREATININE RATIO 23 (12-20 (CALC)); CARBON DIOXIDE 32 mmol/l (22-30); CHLORIDE 100 mmol/l (95-108); CREATININE 0.7 mg/dL (0.5-1.0); GFR FOR AFR.AMER. > 60 ML/MIN (>=60 (CALC)); GFR OTHER RACES > 60 ML/MIN (>=60 (CALC)); POTASSIUM 3.2 mmol/l (3.5-5.1); SODIUM 138 mmol/l (137-146); TOTAL PROTEIN 7.2 g/dL (6.3-8.2)
[2022-09-06 13:10] LABS: BILIRUBIN, TOTAL 0.3 mg/dL (0.02-1.3); SGOT/AST 43 u/l (9-36)
[2022-09-06 13:28] LABS: URINE BILIRUBIN - DIPSTICK NEGATIVE (NEGATIVE); URINE BLOOD DIPSTICK NEGATIVE (NEGATIVE); URINE COLOR YELLOW; URINE GLUCOSE - DIPSTICK NEGATIVE (NEGATIVE); URINE KETONE NEGATIVE (NEGATIVE); URINE LEUK ESTERASE NEGATIVE (NEGATIVE); URINE PROTEIN - DIPSTICK NEGATIVE (NEG-TRACE)
[2022-09-06 13:29] LABS: URINE NITRITE - DIPSTICK NEGATIVE (Negative)
== END 2022-09-06 16:34 | disposition home or self-care (01) ==
LOC: ED 11:36
PROVIDERS: Family Medicine; Nurse Practitioner
DX: G40.409 Other generalized epilepsy and epileptic syndromes, not intractable, without status epilepticus (principal); S00.511A Abrasion of lip, initial encounter; I11.0 Hypertensive heart disease with heart failure; I50.9 Heart failure, unspecified; F41.9 Anxiety disorder, unspecified; J45.909 Unspecified asthma, uncomplicated; F17.200 Nicotine dependence, unspecified, uncomplicated; W19.XXXA Unspecified fall, initial encounter
CPT/HCPCS: J1953; J2060

== ENCOUNTER 2023-12-09 09:08 | Observation (INO) | payer MEDICARE, MEDICAID ==
[~2023-12-09] VITALS: Ht 170.2 cm; Wt 75.0 kg
[2023-12-09] VITALS (10 sets, daily range): BP systolic 126–158; BP diastolic 65–113
--- NOTE | 2023-12-09 09:09 | NUR ---
PT BROUGHT BACK TO ER ROOM 13, PROVIDER AT BEDSIDE
[2023-12-09] MEDS ORDERED: ONDANSETRON HCl 4 MG/2 ML SDV IV ONE (09:30)
[2023-12-09] MEDS ORDERED: MORPHINE SULFATE 4 MG/ML VIAL IV ONE ×2 (09:30→11:45)
[2023-12-09 09:31] LABS: BASO% 0.3 % (0-3); HEMATOCRIT 36.2 % (37.0-47.0); IMMATURE GRANULOCYTES 0.1 % (0.0-5.0); LYMPH% 8.5 % (15-41); MEAN CELL VOLUME 94.3 fL CALC (80.0-100.0); MEAN CORPUSCULAR HGB 31.3 pG CALC (26.0-32.0); MEAN CORPUSCULAR HGB CONC 33.1 g/dL CAL (32.0-36.0); MONO% 8.4 % (2-13); NEUT# 7.65 thou/uL (2.00-7.15); NEUT% 82.7 % (42-76); RED BLOOD COUNT 3.84 mill/uL (4.20-5.60); RED CELL DISTRI WIDTH 13.6 % (11.5-15.5)
[2023-12-09 09:50] LABS: ALBUMIN 4.1 g/dL (3.2-5.0); CREATININE 0.6 mg/dL (0.5-1.0); TOTAL PROTEIN 7.4 g/dL (6.3-8.2)
[2023-12-09 10:01] LABS: BILIRUBIN, TOTAL 0.6 mg/dL (0.02-1.3); POTASSIUM 2.7 mmol/l (3.5-5.1)
[2023-12-09] MEDS ORDERED: POTASSIUM CHLORIDE 20MEQ 100 ML IV ONE ×2 (10:45)
[2023-12-09] MEDS ORDERED: MAGNESIUM SULFATE HEPTAHYDRATE 50 ML IV ONE (10:45)
[2023-12-09] MEDS ORDERED: ACETAMINOPHEN 325 MG/TAB PO PRN (12:45)
[2023-12-09] MEDS ORDERED: MAGNESIUM HYDROXIDE 30 ML UDC PO PRN (12:45)
[2023-12-09] MEDS ORDERED: KEPPRA1000 MG PO (14:01)
[2023-12-09] MEDS ORDERED: Zaleplon 5 MG/CAP PO PRN (14:05)
[2023-12-09] MEDS ORDERED: VALPROIC ACID 250 MG/CAP PO SCH (14:30)
--- NOTE | 2023-12-09 14:33 | NUR ---
REPORT RECEIVED FROM ER NURSE EMILIA HERNANDEZ. PT TRASNFERRED TO [facility] RM 270 VIA STR @1300 WITH PT DAUGHTER PRESENT. PT DID NOT AMBULATE, WAS ABLE TO SHIFT HIPS FROM STR TO BED. PT IS A/OX3, ON RM AIR. PT WEARING PRESCRIPTION GLASSES. SPLINT NOTED TO PT (LT) FOOT, COMPLETED BY ER STAFF. TOES PRESENT WARM AND <3 CAPILLARY REFILL. ABRASION NOTED TO (LT) EYEBROW AND BRUISING AND MILD SWELLING NOTED. BRUISING PRESENT ON LFA, LT KNEE AND RT KNEE. PT STATES THEY HAD A FALL @0400 THIS MORNING AFTER A SEIZURE. DAUGHTER STATES FALL AND SEIZURE WERE UNWITNESSED. PT ONLY ABLE TO RECALL LAYING IN BED AND STATES "I JUST WOKE UP IN BED AND WAS HURTING AND COULDNT GET UP" PT ALSO STATES SHE HAS HAD LOOSE STOOLS FOR THE PAST 4-5 DAYS, NO BM TODAY. LBM 12/08/23. C/O NAUSEA INTERMITTENLY BUT DENIES ANY AT THIS TIME. DAUGHTER STATED THE PT HAS HAD DECREASED APPETITE AND LOST >10LBS IN LAST MONTH. PT IS ON TELEMETRY MONITORING. CHEST PORT NOTED TO RT SIDE ON SL. PT DID HAVE JEWELRY ON ARRIVAL, HOWEVER COLLECTED BY DAUGHTER TO BE SENT HOME. PT DOES HAVE LUMP NOTED TO SPINE AREA, NO REDNESS, DRAINAGE, OR TENDERNESS. PT PLACED ON PUREWICK AT THIS TIME AND EDUCATED ON FALL RISK, SAFETY PRECAUTIONS, AND PLAN OF CARE. BED ALARM PLACE. VSS. PT SITTING UP FOWLERS IN BED. CALL LIGHT WITHIN REACH, BED ALARM ON AND SAFETY PRECAUTIONS IN PLACE.
[2023-12-09] MEDS ORDERED: ALPRAZolam 0.5 MG/TAB PO SCH (15:00)
[2023-12-09] MEDS ORDERED: NICOTINE TRANSDERMAL 21 MG/PATCH TD SCH (17:23)
--- NOTE | 2023-12-09 18:09 | NUR ---
PT IS PRESENTING FORGETFUL. NOT REMEMBERING WHERE SHE IS OR WHAT HAPPEN. DID ATTEMPT TO GET OUT OF BED BY HERSELF TWICE, WITH BED ALARM GOING OFF. CREDIT RESOLUTION REPRESENTATIVE AND STAFF CONTINUE TO REORIENT PT IN WHICH SHE INDICATES SHE UNDERSTANDS. PT SON AT BEDSIDE AT THIS TIME.
--- NOTE | 2023-12-09 20:00 | NUR ---
RECEIVED REPORT FROM NURSE TERELL, PATIENT ALERT ORIENTED X 3, ABLE TO MAKE NEEDS KNOWN, PATIENT NOTED TO BE FORGETFUL, PATIENT HAS A PORT ACCESSED IN ED RT CHEST SALINE LOCK, PATINET ON TELEMETRY, PATIENT ON SEIZURE PRECAUTION, BED PADDED, PATIENT NOTED ABRASION ON THE LEFT EYE BROW, AND BRUISING ON THE LEFT FOREARM, PATIENT HAS A SPLINT ON THE LEFT FOOT RAP WITH CHUNG BANDAGE, PATIENT ON PUREWICK, PATIENT C/O PAIN ON LEFT FOOT PS 8/10, MD AWARE WITH NEW ORDERS MADE.
[2023-12-09] MEDS ORDERED: HYDROcodone 5 MG/Acetaminophen 325 MG/COMBO PO PRN (20:45)
[2023-12-09] MEDS ORDERED: ENOXAPARIN SODIUM 40 MG/0.4 ML SYR SC SCH (21:00)
[2023-12-09] MEDS ORDERED: FLUTICASONE/SALMETEROL 250 MCG/50 MCG PER DOSE INH IN SCH (21:00)
[2023-12-09] MEDS ORDERED: ATORVASTATIN CALCIUM 40 MG/TAB PO SCH (21:00)
[2023-12-09] MEDS ORDERED: QUEtiapine FUMERATE 25 MG/TAB PO SCH (21:00)
[2023-12-09] MEDS ORDERED: LevETIRAcetam 500 MG/TAB PO SCH (21:00)
--- NOTE | 2023-12-10 00:49 | NUR ---
PATIENT RESTING IN BED, NOT IN DISTRESS, BREATHING EVEN UNALBORED CALL LIGHT IN REACHED, BED ALARM IN PLACED.
[2023-12-10 04:00] VITALS: BP 121/79
--- NOTE | 2023-12-10 04:19 | NUR ---
PATIENT RESTING IN BED. PUREWICK LEAKING BRIEF CHANGED, NEW PUREWICK IN PLACED. CALL LIGHT IN REACHED.
[2023-12-10 04:56] LABS: HEMATOCRIT 34.5 % (37.0-47.0); HEMOGLOBIN 11.3 g/dl (12.0-16.0); MEAN CELL VOLUME 94.5 fL CALC (80.0-100.0); MEAN CORPUSCULAR HGB CONC 32.8 g/dL CAL (32.0-36.0); RED BLOOD COUNT 3.65 mill/uL (4.20-5.60); RED CELL DISTRI WIDTH 13.9 % (11.5-15.5)
[2023-12-10 05:11] LABS: ALBUMIN 3.6 g/dL (3.2-5.0); CREATININE 0.6 mg/dL (0.5-1.0); POTASSIUM 3.1 mmol/l (3.5-5.1); TOTAL PROTEIN 6.6 g/dL (6.3-8.2)
[2023-12-10 05:20] LABS: BILIRUBIN, TOTAL 0.9 mg/dL (0.02-1.3); MAGNESIUM 1.9 mg/dL (1.6-2.3)
[2023-12-10 07:10] VITALS: BP 145/70
[2023-12-10] MEDS ORDERED: POTASSIUM CHLORIDE 20 MEQ/TAB PO SCH (08:00)
--- NOTE | 2023-12-10 08:01 | NUR ---
PT IS AOX3 BUT FORGETFUL, RESPIRATIONS ARE EVEN AND UNLABORED, LUNGS SOUND COURSE AT THE BASES, PT REPORTS HAVING A PRODUCTIVE COUGH THAT PRODUCES A "WHITE MUCUS" BOWEL SOUNDS ARE ACTIVE, RIGHT PEDAL PULSES PALPABLE TO TOUCH. LEFT TOES WARM TO THE TOUCH, PT REORTS FEELING "NERVOUS" STATES SHE NORMALLY TAKES "NERVE PILLS" FOR IT AT HOME.
[2023-12-10] MEDS ORDERED: amLODIPine BESYLATE 5 MG/TAB PO SCH (09:00)
[2023-12-10] MEDS ORDERED: SERTRALINE HCL 50 MG/TAB PO SCH (09:00)
[2023-12-10] MEDS ORDERED: LevETIRAcetam 500 MG/TAB PO SCH (09:30)
--- NOTE | 2023-12-10 10:30 | NUR ---
NEUROLOGIST AT BEDSIDE VIA [employer] WITH PT AT THIS TIME.
[2023-12-10 11:05] VITALS: BP 134/77
--- NOTE | 2023-12-10 11:17 | NUR ---
pt blood sugar was 129 @1100
[2023-12-10 15:06] VITALS: BP 123/80
--- NOTE | 2023-12-10 15:50 | NUR ---
PT AO SITTING UP IN BED WATCHING TV AT THIS TIME.
[2023-12-10 19:55] VITALS: BP 138/78
--- NOTE | 2023-12-10 20:50 | NUR ---
PATIENT IN BED WATCHING TV. A&O X3. BED SIDE REPORT COMPLEATED. RESPORATIONS EVEN AND UNLABORED. LEFT LEG WRAPPED WITH CHUNG BANDAGE. CAN MAKE NEEDS KNOWN, NONE NEEDED AT THIS TIME. BED AT LOWEST POSITION. BED ALARM ON. CALL LIGHT WITHIN REACH.
[2023-12-11 00:27] VITALS: BP 131/70
--- NOTE | 2023-12-11 00:30 | NUR ---
PATIENT IS RESTING IN BED ON RIGTH SIDE. RESPONDS TO VERBAL STIMULI. CAN MAKE NEEDE KNOWN. BED AT LOWEST POSITION. CALL LIGTH WITH IN REACH.
[2023-12-11 04:51] VITALS: BP 137/76
--- NOTE | 2023-12-11 04:55 | NUR ---
PATIENT IN BED AWAKE. RESPONDS TO VERBAL STIMULI, CAN MAKE NEEDS KNOWN. PATENT WAS IN SUM PAIN OF 6. GAVE PAIN MEDICATION TO PATIENT. BED AT LOWEST POSITION ,CALL LIGTH WITHIN REACH.
[2023-12-11 05:50] LABS: HEMATOCRIT 34.6 % (37.0-47.0); HEMOGLOBIN 11.5 g/dl (12.0-16.0); MEAN CELL VOLUME 95.8 fL CALC (80.0-100.0); MEAN CORPUSCULAR HGB 31.9 pG CALC (26.0-32.0); MEAN CORPUSCULAR HGB CONC 33.2 g/dL CAL (32.0-36.0); RED BLOOD COUNT 3.61 mill/uL (4.20-5.60); RED CELL DISTRI WIDTH 14.2 % (11.5-15.5)
[2023-12-11 06:05] LABS: ALBUMIN 3.7 g/dL (3.2-5.0); BILIRUBIN, TOTAL 0.8 mg/dL (0.02-1.3); CREATININE 0.7 mg/dL (0.5-1.0); MAGNESIUM 1.9 mg/dL (1.6-2.3); POTASSIUM 3.2 mmol/l (3.5-5.1); TOTAL PROTEIN 6.7 g/dL (6.3-8.2)
[2023-12-11 07:11] VITALS: BP 126/75
--- NOTE | 2023-12-11 07:18 | NUR ---
PT IS ALERT, ORIENTED TO PERSON, PLACE, TIME THIS MORNING, RESPIRATIONS ARE EVEN AND UNLABORED, LUNGS ARE MILDLY COURSE AT BILATERAL BASES, INSTRUCTED PT ON DEEP BREATHING FOR CLEARABCE, PT REPORTS COUGH WITH "WHITE" SPUTUM, BOWEL SOUNDS ARE ACTIVE IN ALL 4 QUADRANTS, RIGHT PEDAL PULSE PALPABLE TO TOUCH, LEFT FOOT WRAPPED AND ELEVATED ON A PILLOW, RIGHT TOES ARE WARM TO THE TOUCH, PT DENIES PAIN AT THIS TIME.
[2023-12-11] MEDS ORDERED: POTASSIUM CHLORIDE 20 MEQ/TAB PO SCH (08:00)
--- NOTE | 2023-12-11 08:47 | NUR ---
PT UP OUT OF BED IN CHAIR WITH PT AT THIS TIME.
[2023-12-11] MEDS ORDERED: LevETIRAcetam 500 MG/TAB PO SCH (09:00)
--- NOTE | 2023-12-11 10:35 | NUR ---
PRN LORTAB PROVIDED FOR LEFT LOWER LEG "ACHING" PAIN PT DESCRIBED AT AN 8 ON A 0-10 PAIN SCALE. ASSISTED PT BACK TO THE BED, BED ALARM ON.
[2023-12-11 11:44] VITALS: BP 125/76
[2023-12-11] MEDS ORDERED: LEVETIRACETAM500 MG PO (12:41)
--- NOTE | 2023-12-11 14:47 | NUR ---
REVIEWED DISCHARGE INSTRUCTIONS WITH PT. DEACCESSED PORT WITH NO ISSUES OR COMPLAINTS, DC'D TELE AND PLACED IT IN THE BIN AT THE [facility] STATION.
--- NOTE | 2023-12-11 15:16 | NUR ---
PT LEFT THE UNIT VIA WHEECHAIR TRANSPORT FOR DISCHARGE.
== END 2023-12-11 15:16 | disposition home or self-care (01) ==
LOC: ED 09:08 → ED-I 09:54 → ED 09:54 → ED-I 11:31 → ED 12:07 → MS2 12:08
PROVIDERS: Family Medicine; ADMIT Internal Medicine; ATTEND Internal Medicine
PROC: 2W3RX1Z Immobilization of Left Lower Leg using Splint (ICD-10-PCS; principal; 2023-12-09)
DX: G40.409 Other generalized epilepsy and epileptic syndromes, not intractable, without status epilepticus (principal); E87.6 Hypokalemia; E83.42 Hypomagnesemia; S92.322A Displaced fracture of second metatarsal bone, left foot, initial encounter for closed fracture; S92.332A Displaced fracture of third metatarsal bone, left foot, initial encounter for closed fracture; S92.342A Displaced fracture of fourth metatarsal bone, left foot, initial encounter for closed fracture; S00.81XA Abrasion of other part of head, initial encounter; I11.0 Hypertensive heart disease with heart failure; I50.9 Heart failure, unspecified; F41.9 Anxiety disorder, unspecified; F32.A Depression, unspecified; J45.909 Unspecified asthma, uncomplicated; F17.200 Nicotine dependence, unspecified, uncomplicated; W18.39XA Other fall on same level, initial encounter; Y92.003 Bedroom of unspecified non-institutional (private) residence as the place of occurrence of the external cause; Z79.899 Other long term (current) drug therapy
CPT/HCPCS: J1650; J1953; J3475

== ENCOUNTER 2024-02-10 11:31 | Emergency (ER) | payer MEDICARE, MEDICAID ==
[~2024-02-10] VITALS: Ht 170.2 cm; Wt 72.5 kg
[2024-02-10] VITALS (10 sets, daily range): BP systolic 122–161; BP diastolic 72–105
[~2024-02-10 11:31] MED LIST changes: +LEVETIRACETAM500 MG PO
[2024-02-10] MEDS ORDERED: ONDANSETRON HCl 4 MG/2 ML SDV IV ONE (11:40)
[2024-02-10] MEDS ORDERED: SODIUM CHLORIDE 0.9% 1,000 ML IV ONE (11:40)
[2024-02-10 11:59] LABS: BASO% 0.5 % (0-3); EOS% 0.2 % (0-8); HEMATOCRIT 36.1 % (37.0-47.0); HEMOGLOBIN 11.6 g/dl (12.0-16.0); IMMATURE GRANULOCYTES 0.4 % (0.0-5.0); LYMPH% 23.4 % (15-41); MEAN CELL VOLUME 96.8 fL CALC (80.0-100.0); MEAN CORPUSCULAR HGB 31.1 pG CALC (26.0-32.0); MEAN CORPUSCULAR HGB CONC 32.1 g/dL CAL (32.0-36.0); MONO% 8.8 % (2-13); NEUT# 3.73 thou/uL (2.00-7.15); NEUT% 66.7 % (42-76); RED BLOOD COUNT 3.73 mill/uL (4.20-5.60); RED CELL DISTRI WIDTH 13.6 % (11.5-15.5)
[2024-02-10 12:28] LABS: ALBUMIN 4.3 g/dL (3.2-5.0); CREATININE 0.7 mg/dL (0.5-1.0); POTASSIUM 3.8 mmol/l (3.5-5.1); TOTAL PROTEIN 7.5 g/dL (6.3-8.2)
[2024-02-10 12:31] LABS: BILIRUBIN, TOTAL 0.6 mg/dL (0.02-1.3)
[2024-02-10 12:53] LABS: URINE BILIRUBIN - DIPSTICK Negative (NEGATIVE); URINE BLOOD DIPSTICK Negative (NEGATIVE); URINE COLOR Yellow; URINE GLUCOSE - DIPSTICK Negative (NEGATIVE); URINE KETONE Trace mg/dL (NEGATIVE); URINE LEUK ESTERASE Negative (NEGATIVE); URINE NITRITE - DIPSTICK Negative (Negative); URINE PH 5.5 (4.5-8.0); URINE PROTEIN - DIPSTICK Negative (NEG-TRACE); URINE UROBILINOGEN - DIPSTICK 0.2 E.U./dL (0.2)
[2024-02-10] MEDS ORDERED: LORazepam 2 MG/ML IV ONE (13:15)
[2024-02-10] MEDS ORDERED: ZOFRAN4 MG/TAB PO (13:58)
[2024-02-10] MEDS ORDERED: PROTONIX40 M2 PO (13:58)
[2024-02-10] MEDS ORDERED: Pantoprazole Sodium 40 MG VIAL (Protonix) IV ONE (14:00)
[2024-02-10] MEDS ORDERED: HEPARIN SODIUM FLUSH (PORCINE) 10 UNIT/ML 5ML SYR IV ONE (14:45)
== END 2024-02-10 15:00 | disposition home or self-care (01) ==
LOC: ED 11:31
PROVIDERS: Family Medicine
DX: K29.70 Gastritis, unspecified, without bleeding (principal); E27.8 Other specified disorders of adrenal gland; I11.0 Hypertensive heart disease with heart failure; I50.9 Heart failure, unspecified; J45.909 Unspecified asthma, uncomplicated; F17.200 Nicotine dependence, unspecified, uncomplicated
CPT/HCPCS: J2060; J2470; Q9967

== ENCOUNTER 2024-04-03 16:20 | Emergency (ER) | payer MEDICARE, MEDICAID ==
[2024-04-03] VITALS (12 sets, daily range): BP systolic 136–159; BP diastolic 86–110
[~2024-04-03] VITALS: Ht 165.1 cm; Wt 72.6 kg
[~2024-04-03 16:20] MED LIST changes: +PROTONIX40 M2 PO; +TRAZODONE100 MG PO; +ZOFRAN4 MG/TAB PO
[2024-04-03] MEDS ORDERED: ALPRAZolam 0.5 MG/TAB PO ONE (16:35)
[2024-04-03 17:45] LABS: BASO% 0.4 % (0-3); EOS% 1.9 % (0-8); IMMATURE GRANULOCYTES 0.2 % (0.0-5.0); LYMPH% 25.2 % (15-41); MEAN CORPUSCULAR HGB 31.8 pG CALC (26.0-32.0); MEAN CORPUSCULAR HGB CONC 32.8 g/dL CAL (32.0-36.0); MONO% 11.8 % (2-13); NEUT# 2.83 thou/uL (2.00-7.15); NEUT% 60.5 % (42-76); RED BLOOD COUNT 3.3 mill/uL (4.20-5.60); RED CELL DISTRI WIDTH 14.1 % (11.5-15.5)
[2024-04-03 17:46] LABS: HEMOGLOBIN 10.5 g/dl (12.0-16.0)
[2024-04-03 17:57] LABS: ALKALINE PHOSPHATASE 83 u/l (38-126); BILIRUBIN, TOTAL 0.5 mg/dL (0.02-1.3); BUN 7 mg/dL (8-23); BUN/CREATININE RATIO 9 (12-20 (CALC)); CHLORIDE 102 mmol/l (95-108); CREATININE 0.8 mg/dL (0.5-1.0); ESTIMATED GFR 81 ML/MIN (>=90 (CALC)); SGOT/AST 22 u/l (9-36); TOTAL PROTEIN 7.1 g/dL (6.3-8.2)
[2024-04-03 18:02] LABS: ANION GAP 10 (6-22 (CALC)); CARBON DIOXIDE 32 mmol/l (22-30); POTASSIUM 2.9 mmol/l (3.5-5.1); SODIUM 141 mmol/l (137-146)
[2024-04-03] MEDS ORDERED: POTASSIUM CHLORIDE 20 MEQ/PKT POWDER PO ONE (19:15)
[2024-04-03] MEDS ORDERED: POTASSIUM CHLO20 ME1 PO (19:16)
[2024-04-03] MEDS ORDERED: DRAMAMINE25 M1 PO (19:16)
== END 2024-04-03 19:35 | disposition home or self-care (01) ==
LOC: ED 16:20
PROVIDERS: Family Medicine
DX: R42 Dizziness and giddiness (principal); E87.6 Hypokalemia; I11.0 Hypertensive heart disease with heart failure; I50.9 Heart failure, unspecified; J45.909 Unspecified asthma, uncomplicated; F41.9 Anxiety disorder, unspecified; F17.200 Nicotine dependence, unspecified, uncomplicated

== ENCOUNTER 2024-06-20 16:54 | Emergency (ER) | payer MEDICARE, MEDICAID ==
[~2024-06-20] VITALS: Ht 165.1 cm; Wt 68.0 kg
[2024-06-20] VITALS (8 sets, daily range): BP systolic 124–138; BP diastolic 85–96
[~2024-06-20 16:54] MED LIST changes: +DRAMAMINE25 M1 PO; +POTASSIUM CHLO20 ME1 PO
[2024-06-20 18:02] LABS: BASO% 0.1 % (0-3); HEMATOCRIT 34.5 % (37.0-47.0); HEMOGLOBIN 11.8 g/dl (12.0-16.0); LYMPH% 16.5 % (15-41); MEAN CELL VOLUME 92.5 fL CALC (80.0-100.0); MEAN CORPUSCULAR HGB 31.6 pG CALC (26.0-32.0); MEAN CORPUSCULAR HGB CONC 34.2 g/dL CAL (32.0-36.0); MONO% 9.4 % (2-13); NEUT# 5.38 thou/uL (2.00-7.15); RED BLOOD COUNT 3.73 mill/uL (4.20-5.60); RED CELL DISTRI WIDTH 12.2 % (11.5-15.5)
[2024-06-20 18:03] LABS: URINE BILIRUBIN - DIPSTICK Negative (NEGATIVE); URINE BLOOD DIPSTICK Negative (NEGATIVE); URINE GLUCOSE - DIPSTICK Negative (NEGATIVE); URINE KETONE Negative (NEGATIVE); URINE LEUK ESTERASE Negative (NEGATIVE); URINE NITRITE - DIPSTICK Negative (Negative); URINE PH 6.5 (4.5-8.0); URINE PROTEIN - DIPSTICK Negative (NEG-TRACE); URINE UROBILINOGEN - DIPSTICK 0.2 E.U./dL (0.2)
[2024-06-20 18:08] LABS: URINE COLOR Light yellow
[2024-06-20 18:20] LABS: ALBUMIN 4.3 g/dL (3.2-5.0); BILIRUBIN, TOTAL 0.6 mg/dL (0.02-1.3); CREATININE 0.6 mg/dL (0.5-1.0); MAGNESIUM 1.4 mg/dL (1.6-2.3); POTASSIUM 3.4 mmol/l (3.5-5.1); TOTAL PROTEIN 7.7 g/dL (6.3-8.2)
[2024-06-20] MEDS ORDERED: SODIUM CHLORIDE 0.9% 1,000 ML IV ONE (18:30)
[2024-06-20] MEDS ORDERED: MAGNESIUM SULFATE 50% 1 GM/2 ML IV ONE (18:30)
[2024-06-20] MEDS ORDERED: POTASSIUM CHLORIDE 20 MEQ/TAB PO ONE (18:35)
[2024-06-20] MEDS ORDERED: SODIUM CHLORIDE 0.9% 50 ML IV ONE (19:02)
[2024-06-20] MEDS ORDERED: POT CHLORIDE20 ME2 PO (19:31)
[2024-06-20] MEDS ORDERED: MAGNESIUM200 MG PO (19:31)
== END 2024-06-20 20:24 | disposition home or self-care (01) ==
LOC: ED 16:54
PROVIDERS: Family Medicine
DX: E87.1 Hypo-osmolality and hyponatremia (principal); E87.6 Hypokalemia; E83.42 Hypomagnesemia; I11.0 Hypertensive heart disease with heart failure; I50.9 Heart failure, unspecified; J45.909 Unspecified asthma, uncomplicated; F41.9 Anxiety disorder, unspecified; F17.200 Nicotine dependence, unspecified, uncomplicated

== ENCOUNTER 2024-06-28 12:09 | Observation (INO) | payer MEDICARE, MEDICAID ==
[~2024-06-28] VITALS: Ht 165.1 cm; Wt 62.8 kg
[2024-06-28] VITALS (25 sets, daily range): BP systolic 95–141; BP diastolic 67–110
[~2024-06-28 12:09] MED LIST changes: +MAGNESIUM200 MG PO; +POT CHLORIDE20 ME2 PO
--- NOTE | 2024-06-28 12:28 | NUR ---
PT AMBULATED TO ROOM UTILIZING CANE WITH DAUGHTER.
[2024-06-28 13:40] LABS: URINE BILIRUBIN - DIPSTICK Negative (NEGATIVE); URINE BLOOD DIPSTICK Negative (NEGATIVE); URINE GLUCOSE - DIPSTICK Negative (NEGATIVE); URINE KETONE Negative (NEGATIVE); URINE LEUK ESTERASE Negative (NEGATIVE); URINE NITRITE - DIPSTICK Negative (Negative); URINE PROTEIN - DIPSTICK Negative (NEG-TRACE); URINE SPECIFIC GRAVITY 1.015; URINE UROBILINOGEN - DIPSTICK 0.2 E.U./dL (0.2)
[2024-06-28 13:48] LABS: URINE COLOR Light yellow
[2024-06-28 14:16] LABS: BASO% 0.5 % (0-3); EOS% 0.5 % (0-8); HEMATOCRIT 33.7 % (37.0-47.0); HEMOGLOBIN 11.4 g/dl (12.0-16.0); IMMATURE GRANULOCYTES 0.2 % (0.0-5.0); LYMPH% 24.3 % (15-41); MEAN CELL VOLUME 94.7 fL CALC (80.0-100.0); MEAN CORPUSCULAR HGB CONC 33.8 g/dL CAL (32.0-36.0); MONO% 14.1 % (2-13); NEUT# 2.49 thou/uL (2.00-7.15); NEUT% 60.4 % (42-76); RED BLOOD COUNT 3.56 mill/uL (4.20-5.60); RED CELL DISTRI WIDTH 12.7 % (11.5-15.5)
[2024-06-28 14:32] LABS: ALBUMIN 3.9 g/dL (3.2-5.0); BILIRUBIN, TOTAL 0.4 mg/dL (0.02-1.3); CREATININE 0.8 mg/dL (0.5-1.0); TOTAL PROTEIN 6.9 g/dL (6.3-8.2)
[2024-06-28] MEDS ORDERED: SODIUM CHLORIDE 0.9% 1,000 ML IV ONE (14:50)
--- NOTE | 2024-06-28 14:52 | NUR ---
DR. ALVIN LOYA ON TELE COMPLETIN [facility]. CT COMPLETED IV STARTED AND BLOOD DRAWN.
[2024-06-28] MEDS ORDERED: MELATONIN 3 MG/TAB PO PRN (15:35)
[2024-06-28] MEDS ORDERED: Polyethylene Glycol 3350 17 GM/PKT PO PRN (15:35)
[2024-06-28] MEDS ORDERED: ONDANSETRON 4 MG/TAB ODT SL PRN (15:35)
[2024-06-28] MEDS ORDERED: ACETAMINOPHEN 325 MG/TAB PO PRN (15:35)
[2024-06-28] MEDS ORDERED: CEFEPIME HYDROCHLORIDE 2 GM in SODIUM CHLORIDE 0.9% 100 ML IV SCH ×2 (15:40→23:00)
[2024-06-28 15:54] LABS: CALCULATED LDLCHOLESTEROL 57 mg/dL (62-129 (CALC)); CHOLESTEROL HDL RATIO 2.3 (<4.4 (CALC)); HDL CHOLESTEROL 58 mg/dL (39.0-59.0); TOTAL CHOLESTEROL 134 mg/dl (0-199); TOTAL TRIGLYCERIDES 98 mg/dl (0-149); VLDL CHOLESTROL 20 mg/dl (1-41 (CALC))
[2024-06-28 15:55] LABS: C-REACTIVE PROTEIN < 0.5 mg/dL (0-0.9)
[2024-06-28] MEDS ORDERED: VANCOMYCIN HCL 1 GM in SODIUM CHLORIDE 0.9% 250 ML IV SCH ×2 (16:00→23:00)
--- NOTE | 2024-06-28 17:38 | NUR ---
PT REPORT TO MARY NIEVES. PT TRANSPORTED VIA WC TO ROOM 275. VSS. TRANSFERRED CARE OF PT.
--- NOTE | 2024-06-28 18:11 | NUR ---
PATIENT WAS RECEIVED AT 1800 ON TO FLOOR . ED NURSE GAVE HAND OFF REPORT. PATIENT IS STABLE / VITALS TAKEN, TEMP AND WT. . PT IS A & O X4. PT BROUGHT HOME MEDS WITH HER . HOME MEDICATIONS X2 BAGS PUT IN MED ROOM FOR PHARMACY TO REVIEW THEM. GAVE CALL NUNEZ AND SET BED ALARM .PUT EVERYTHING WITH-IN REACH
--- NOTE | 2024-06-28 19:50 | NUR ---
PT RESTING IN BED NO DISTRESS NOTED ON ASSESSMENT/ADMISSION. CHEST PORT FLUSHED WORKING PROPERLY SL. VS WNL ON RA LUNGS CLEAR NO PAIN REPORTED. BLE EDEMA +1 DUNCAN HOSE APPLIED. CALL LIGHT WITHIN REACH. PT STATED UNDERSTANDING ON HOW TO USE IT. PLAN OF CARE ONGOING.
[2024-06-28 20:43] LABS: BILIRUBIN, TOTAL 0.5 mg/dL (0.02-1.3); CREATININE 0.8 mg/dL (0.5-1.0); POTASSIUM 4.3 mmol/l (3.5-5.1); TOTAL PROTEIN 7.1 g/dL (6.3-8.2)
[2024-06-28] MEDS ORDERED: ENOXAPARIN SODIUM 40 MG/0.4 ML SYR SC SCH (21:00)
--- NOTE | 2024-06-28 22:00 | NUR ---
PT ASKING TO HAVE HER HOME MEDS RESTARTED. NURSE CALL ONCAINSLEY PROVIDED HOW GAVE VERBAL ORDER TO START SOME OF HER HOME MEDICATIONS.
[2024-06-28] MEDS ORDERED: ATORVASTATIN CALCIUM 40 MG/TAB PO SCH (23:00)
[2024-06-28] MEDS ORDERED: traZODone HCL 50 MG/TAB PO PRN (23:00)
[2024-06-28] MEDS ORDERED: ALPRAZolam 0.5 MG/TAB PO PRN (23:00)
[2024-06-28] MEDS ORDERED: QUEtiapine FUMERATE 25 MG/TAB PO SCH (23:00)
[2024-06-28] MEDS ORDERED: MECLIZINE HCL 25 MG/TAB PO PRN (23:00)
--- NOTE | 2024-06-29 | NUR ---
PT RESTING NO DISTRESS NOTED ON EXAM. IV ABX ONGOING THRU CHEST PORT WORKING PROPERLY. CALL LIGHT WITHIN REACH. PLAN OF CARE ONGOING.
[2024-06-29] MEDS ORDERED: Zaleplon 5 MG/CAP PO PRN (00:45)
[2024-06-29 04:29] VITALS: BP 143/81
--- NOTE | 2024-06-29 04:30 | NUR ---
PT EASILY AROUSABLE NO DISTRESS NOTED ON EXAM. CHEST PORT FLUSHED AND LAB SAMPLE DRAWN WORKING PROPERLY SL. CALL LIGHT WITHIN REACH. PLAN OF CARE ONGOING.
[2024-06-29 05:14] LABS: BASO% 0.6 % (0-3); EOS% 1.1 % (0-8); HEMATOCRIT 31.3 % (37.0-47.0); HEMOGLOBIN 10.9 g/dl (12.0-16.0); LYMPH% 21.4 % (15-41); MEAN CELL VOLUME 94.3 fL CALC (80.0-100.0); MEAN CORPUSCULAR HGB 32.8 pG CALC (26.0-32.0); MEAN CORPUSCULAR HGB CONC 34.8 g/dL CAL (32.0-36.0); MONO% 13.1 % (2-13); NEUT# 2.23 thou/uL (2.00-7.15); NEUT% 63.8 % (42-76); RED BLOOD COUNT 3.32 mill/uL (4.20-5.60); RED CELL DISTRI WIDTH 12.8 % (11.5-15.5)
[2024-06-29 05:20] LABS: ALBUMIN 3.7 g/dL (3.2-5.0); BILIRUBIN, TOTAL 0.6 mg/dL (0.02-1.3); CREATININE 0.8 mg/dL (0.5-1.0); MAGNESIUM 1.8 mg/dL (1.6-2.3); POTASSIUM 4.3 mmol/l (3.5-5.1); TOTAL PROTEIN 6.6 g/dL (6.3-8.2)
[2024-06-29 06:38] VITALS: BP 139/79
[2024-06-29] MEDS ORDERED: PANTOPRAZOLE SODIUM Sesquihydr 40 MG/TAB PO SCH (09:00)
[2024-06-29] MEDS ORDERED: ASPIRIN EC 81 MG/TAB PO SCH (09:00)
[2024-06-29] MEDS ORDERED: SERTRALINE HCL 50 MG/TAB PO SCH (09:00)
[2024-06-29] MEDS ORDERED: amLODIPine BESYLATE 5 MG/TAB PO SCH (09:00)
[2024-06-29] MEDS ORDERED: PATIENT' OWN MED 1 EA DOSE PO SCH (11:00)
--- NOTE | 2024-06-29 11:03 | NUR ---
PRELIMINARY BLOOD CULTURE SHOWS GRAM POSITIVE BACILLI IN 1/4 VIALS, LIKELY CONTAMINATION. RESULTS REPORTED TO DR GANDARA. PATIENT CURRENTLY RECEIVING VANOCMYICN 1GM IV Q24H AND CEFEPIME 2GM IV Q12H. NO NEW ORDERS. WILL FOLLOW UP [facility] FINAL RESULTS AVAILABLE.
--- NOTE | 2024-06-29 11:35 | NUR ---
Pt walking down bowser, when asked where shes going pt replied "Im looking for a bathroom" nurse walked with pt back to room and showed pt she can use the bathroom in her room.
--- NOTE | 2024-06-29 11:43 | NUR ---
Nurse assisted pt back to bed, reeducated pt on use of call light, reviewed safety precautions with pt, turned bed alarm on.
--- NOTE | 2024-06-29 13:18 | NUR ---
S: DENEEN CAI is a 68 F who presents with <problem>. O: VS: BP 139/79mmHg, P 71bpm, RR 20bpm,T 99.0F W 61.4kg, HT 65in, Scr= 0.8mg/dL, CrCl= 49.1ml/min A: Preliminary blood culture shows gram positive ignacio in 1/4 vials. Urine culture is pending. P: Patient is on cefepime 2gm iv q12h. Vancomycin ordered for pharmacy to dose. Start Vancomycin 1g IV Q24H. Vancomycin trough is drawn before the dose on 06/30/24 @2230. Vancomycin goal trough is between 10-20 mcg/ml. Pharmacy will follow and or advise on antibiotics use as needed.
--- NOTE | 2024-06-29 14:37 | NUR ---
PATIENT RESTING IN BED WITH FAMILY AT SIDE . STILL A LITTLE CONFUSED BUT TOLERATING IV TX WELL . NO C/O PAIN OR DISCOMFORT
[2024-06-29 15:40] VITALS: BP 140/70
[2024-06-29 15:47] LABS: ALBUMIN 3.9 g/dL (3.2-5.0); BILIRUBIN, TOTAL 0.6 mg/dL (0.02-1.3); CREATININE 0.8 mg/dL (0.5-1.0); POTASSIUM 4.4 mmol/l (3.5-5.1); TOTAL PROTEIN 6.7 g/dL (6.3-8.2)
[2024-06-29 19:15] VITALS: BP 136/76
--- NOTE | 2024-06-29 20:20 | NUR ---
PT AMBULATING IN ROOM NO DISTRESS NOTED. ASSESSMENT DONE. VS WNL ON RA LUNG SOOUNDS CLEAR. RIGHT CHEST PORT FLUSHED SL. BLE EDEMA PLUS 1. NO PAIN REPORTED AT THIS TIME. CALL LIGHT WITHIN REACH. PLAN OF CARE ONGOING.
[2024-06-29] MEDS ORDERED: VANCOMYCIN HCL 1 GM in SODIUM CHLORIDE 0.9% 250 ML IV SCH (23:00)
--- NOTE | 2024-06-29 23:45 | NUR ---
PT AWAKE AMBULATING IN ROOM INDEPENDENTLY NO DISTRESS NOTED. RIGHT CHEST PORT FLUSHED AND ABX STARTED. CALL LIGHT WITHIN REACH. PLAN OF CARE ONGOING.
[2024-06-30] VITALS (7 sets, daily range): BP systolic 110–129; BP diastolic 64–77
[2024-06-30 04:36] LABS: BASO% 0.2 % (0-3); HEMATOCRIT 29.5 % (37.0-47.0); HEMOGLOBIN 10.5 g/dl (12.0-16.0); IMMATURE GRANULOCYTES 0.2 % (0.0-5.0); LYMPH% 25.5 % (15-41); MEAN CELL VOLUME 91.9 fL CALC (80.0-100.0); MEAN CORPUSCULAR HGB 32.7 pG CALC (26.0-32.0); MEAN CORPUSCULAR HGB CONC 35.6 g/dL CAL (32.0-36.0); MONO% 15.4 % (2-13); NEUT# 2.4 thou/uL (2.00-7.15); NEUT% 57.7 % (42-76); RED BLOOD COUNT 3.21 mill/uL (4.20-5.60); RED CELL DISTRI WIDTH 12.4 % (11.5-15.5)
[2024-06-30 04:43] LABS: ALBUMIN 3.6 g/dL (3.2-5.0); BILIRUBIN, TOTAL 0.8 mg/dL (0.02-1.3); CREATININE 0.7 mg/dL (0.5-1.0); MAGNESIUM 1.8 mg/dL (1.6-2.3); POTASSIUM 4.4 mmol/l (3.5-5.1); TOTAL PROTEIN 6.4 g/dL (6.3-8.2)
--- NOTE | 2024-06-30 07:08 | NUR ---
RECEIVED REPORT FROM NIGHT NURSE. PATIENT EXPRESS SHE IS FEELING MUCH BETTER TODAY . IS ALERT X4. CHEST PORT IN TACT. RESTING IN BED
--- NOTE | 2024-06-30 12:08 | NUR ---
PATIENT LAYING IN BED, WATCHING TV. PATIENT DENIES ANY NEEDS AT THIS TIME.
--- NOTE | 2024-06-30 16:00 | NUR ---
PATIENT SITTING UP IN BED, WATCHING TV. PATIENT DENIES ANY NEEDS AT THIS TIME.
--- NOTE | 2024-06-30 20:40 | NUR ---
PT SITTING ON SIDE OF BED NO DISTRESS NOTED ON ASSESSMENT. VS WNL ON RA LUNGS CLEAR SKIN INTACT. RIGHT CHEST PORT FLUSHED SL. NO PAIN REPORTED AT THIS TIME. CALL LIGHT WITHIN REACH. PLAN OF CARE ONGOING.
--- NOTE | 2024-06-30 23:34 | NUR ---
PT AWAKE NO DISTRESS NOTED. RIGHT CHEST PORT FLUSHE AND IV ABX GIVEN. CALL LIGHT WITHIN REACH. PLAN OF CARE ONGOING.
[2024-07-01 04:26] VITALS: BP 130/67
--- NOTE | 2024-07-01 04:30 | NUR ---
PT SLEEPING BREATHING EVENLY NO DISTRESS NOTED ON EXAM. CALL LIGHT WITHIN REACH. PLAN OF CARE ONGOING.
[2024-07-01 05:33] LABS: BASO% 0.5 % (0-3); EOS% 1.5 % (0-8); HEMATOCRIT 29.2 % (37.0-47.0); IMMATURE GRANULOCYTES 0.2 % (0.0-5.0); LYMPH% 25.4 % (15-41); MEAN CELL VOLUME 95.4 fL CALC (80.0-100.0); MEAN CORPUSCULAR HGB 32.7 pG CALC (26.0-32.0); MEAN CORPUSCULAR HGB CONC 34.2 g/dL CAL (32.0-36.0); MONO% 16.2 % (2-13); NEUT# 3.43 thou/uL (2.00-7.15); NEUT% 56.2 % (42-76); RED BLOOD COUNT 3.06 mill/uL (4.20-5.60); RED CELL DISTRI WIDTH 12.9 % (11.5-15.5)
[2024-07-01 05:41] LABS: ALBUMIN 3.4 g/dL (3.2-5.0); BILIRUBIN, TOTAL 0.5 mg/dL (0.02-1.3); CREATININE 0.7 mg/dL (0.5-1.0); MAGNESIUM 1.9 mg/dL (1.6-2.3); POTASSIUM 4.6 mmol/l (3.5-5.1); TOTAL PROTEIN 6.1 g/dL (6.3-8.2)
[2024-07-01 06:52] VITALS: BP 119/66
--- NOTE | 2024-07-01 07:15 | NUR ---
REPORT RECEIVED FROM JAYRN
[2024-07-01 07:27] VITALS: BP 119/66
--- NOTE | 2024-07-01 08:30 | NUR ---
PT RESTING AT BEDSIDE, A&O X3. PT DENIES ANY CURRENT PAIN OR DISCOMFORTS, PAIN SCALE AND REPORTING EDUCATED.ASSESSMENT COMPLETED. RESPIRATIONS EVEN AND UNLABORED ON RA,CLEAR LUNG SOUNDS. ABDOMEN SOFT ON PALPATION AND ACTIVE IN ALL 4 QUADRANTS.STRONG PEDAL PULSES.SKIN INTACT.CARDIAC MONITORING IN PLACE.RT UPPER CHEST PORT FLUSHED AND PATENT WITH GOOD BLOOD RETURN NOTED.PRN XANAX 0.5MG PO ADMINISTERED AT THIS TIME PER REQUEST.PT DENIES ANY ADDITIONAL NEEDS AND IS ENCOURAGED TO CALL FOR ASSISTANCE IF NEEDED.CALL LIGHT IN REACH;FREQUENT ROUNDS MADE.
[2024-07-01 09:55] VITALS: BP 134/74
--- NOTE | 2024-07-01 10:00 | NUR ---
PATENT AGENT CALLED TO ROOM BY AID. PT REMOVED PORT ACCESS WITH NEEDLE INTAKE. PRESSURE DRESSING APPLIED. PT REPORTS "THEY SAID I CAN GO HOME SO I TOOK IT OUT".
[2024-07-01 11:02] VITALS: BP 134/74
[2024-07-01] MEDS ORDERED: LASIX20 MG PO (11:53)
--- NOTE | 2024-07-01 13:57 | NUR ---
ALL DISCHARGE INSTRUCTIONS PROVIDED WITH PT AT THIS TIME. PT INSTRUCTED TO STOP TAKE SERTALINE DUE TO HYPONATREMIA, DECREASED DOSE OF LASIX TO 20MG BID AND F/U WITH PCP.HOME MEDICATIONS PROVIDED BACK TO PT FROM PHARMACY. XANAX WAS COUNTED RESULTING IN 63 TABS AND SIGNED BY PATIENT. TELE MONITORING IN PLACE. PT DENIES ANY ADDITIONAL QUESTIONS OR NEEDS. WC TO BE PROVIDED FOR D/C HOME. DAUGHTER TO TRANSPORT PT HOME. FREQUENT ROUNDS MADE
--- NOTE | 2024-07-01 14:27 | NUR ---
Discharge instructions given. Patient verbalizes understanding of same. Discharged in stable condition via Wheelchair to Home with family. All belongings sent with pt. PT TRANSPORTED TO [facility]OM[facility]ANIED BY [facility] AND DAUGHTER. ALL PERSONAL BELONGINGS INCLUDING HOME MEDICATIONS LEFT WITH PT AT THIS TIME. DAUGHTER TO TRANSPORT PT HOME.
[2024-07-01] MEDS ORDERED: VANCOMYCIN HCL 1,250 MG in SODIUM CHLORIDE 0.9% 225 ML IV SCH (23:00)
== END 2024-07-01 14:27 | disposition home or self-care (01) ==
LOC: ED 12:09 → ED-I 14:30 → ED 15:35 → MS2 15:36
PROVIDERS: Nurse Practitioner Family; ADMIT Internal Medicine; ATTEND Internal Medicine
DX: E87.1 Hypo-osmolality and hyponatremia (principal); T43.225A Adverse effect of selective serotonin reuptake inhibitors, initial encounter; I11.0 Hypertensive heart disease with heart failure; I50.9 Heart failure, unspecified; J45.909 Unspecified asthma, uncomplicated; G40.909 Epilepsy, unspecified, not intractable, without status epilepticus; F32.A Depression, unspecified; F41.9 Anxiety disorder, unspecified; F17.200 Nicotine dependence, unspecified, uncomplicated; Z95.828 Presence of other vascular implants and grafts; Z20.822 Contact with and (suspected) exposure to COVID-19
CPT/HCPCS: G0378; J0692; J1650; J3370